=== PATIENT | female | born 1980 ===

== ENCOUNTER 2017-05-10 10:01 | Emergency (ER) | payer OTHER ==
[2017-05-10 10:02] VITALS: BMI 44.2
[2017-05-10 10:07] VITALS: PULSE 84; RESP 20; TEMP 98.4; O2SAT 100
[2017-05-10 10:08] VITALS: BP 103/70
--- NOTE | 2017-05-10 10:10 | C.PDOC ---
History Of Present Illness 37-year-old female, PMHx includes Hypertension, Anxiety, Asthma and Depression, presents to the emergency department with complaints of generalized abdominal pain. Patient states she has been experiencing generalized abdominal pain, ongoing for the past week. Patient notes associated nausea and subjective fever. Last menstrual period was two weeks ago. Patients last bowel movement was yesterday. Patients secondary complaint is sore throat and eye infection, which she believes is causing her pain. Denies dizziness, chest pain, back pain , shortness of breath, or any other associated symptoms. No other complaints at this time. Of note, has been seen in ER previously for drug seeking behavior requesting Xanax for anxiety or other vague complaints. Time Seen by Provider: 05/10/17 10:09 Chief Complaint (Nursing): Abdominal Pain History Per: Patient History/Exam Limitations: no limitations Onset/Duration Of Symptoms: Days Current Symptoms Are (Timing): Still Present Severity: Moderate Location Of Pain/Discomfort: Diffuse Past Medical History Reviewed: Historical Data, Nursing Documentation, Vital Signs Vital Signs: Last Vital Signs Temp 98.4 F 05/10/17 10:04 Pulse 84 05/10/17 10:04 Resp 20 05/10/17 10:04 BP 103/70 05/10/17 10:04 Pulse Ox 100 05/10/17 11:19 - Medical History PMH: Anxiety, Arthritis, Asthma, Depression, HTN (Denies) Family History: States: No Known Family Hx - Social History Hx Tobacco Use: No Hx Alcohol Use: No Hx Substance Use: No - Immunization History Hx Tetanus Toxoid Vaccination: Yes Hx Influenza Vaccination: No Hx Pneumococcal Vaccination: No Review Of Systems Except As Marked, All Systems Reviewed And Found Negative. Constitutional: Negative for: Fever Respiratory: Negative for: Shortness of Breath Gastrointestinal: Negative for: Nausea, Vomiting Musculoskeletal: Negative for: Back Pain Neurological: Negative for: Weakness, Numbness Physical Exam - Physical Exam Appears: Non-toxic, No Acute Distress, Unkempt Skin: Warm, Dry, No Rash Eye(s): bilateral: Normal Inspection, PERRL Nose: Normal Oral Mucosa: Moist Lips: Normal Appearing Neck: Normal ROM Cardiovascular: Rhythm Regular Respiratory: Normal Breath Sounds, No Accessory Muscle Use Gastrointestinal/Abdominal: Soft, No Tenderness, No Guarding, No Rebound Extremity: Normal ROM Neurological/Psych: Oriented x3, Normal Speech ED Course And Treatment O2 Sat by Pulse Oximetry: 100 Progress - Re-Evaluation Re-evaluation Note: 05/10/17 11:15 ADVISED BY RN KADEEM DANIELSON. PT GONE PRIOR TO MY REEVAL - Data Reviewed Data Reviewed: Lab, Old records Disposition - Disposition Disposition: ELOPEMENT - ER ONLY Disposition Time: 11:15 Condition: UNKNOWN Forms: [facility] (Belarusian) - Clinical Impression Clinical Impression: Patient left before treatment completed, Abdominal pain - Scribe Statement The provider has reviewed the documentation as recorded by the Scribe (Marielle Villanueva) All medical record entries made by the Scribe were at my direction and personally dictated by me. I have reviewed the chart and agree that the record accurately reflects my personal performance of the history, physical exam, medical decision making, and the department course for this patient. I have also personally directed, reviewed, and agree with the discharge instructions and disposition.
[2017-05-10] MEDS ORDERED: Alum-Mag Hydrox-Simethicone Susp (30 mL) PO STA (10:37)
[2017-05-10 10:38] LABS: RBC URINE 1 /hpf (0-3); URINE BACTERIA RARE (<OCC); URINE BILIRUBIN NEGATIVE (NEGATIVE); URINE BLOOD NEGATIVE (NEGATIVE); URINE COLOR Yellow (YELLOW); URINE GLUCOSE (UA) NORMAL (Normal); URINE KETONE TRACE mg/dL (NEGATIVE); URINE LEUKOCYTE ESTERASE TRACE Leu/uL (Negative); URINE PROTEIN NEGATIVE (NEGATIVE); URINE UROBILINOGEN NORMAL mg/dL (0.2-1.0); WBC URINE 4 /hpf (0-5)
[2017-05-10] MEDS ORDERED: Aluminum Hydroxide/Magnesium Hydroxide Susp (30 mL) ONE (10:48)
== END 2017-05-10 11:13 | disposition left against medical advice (07) ==
LOC: C.ER 10:01
DX: R10.9 Unspecified abdominal pain (principal)

== ENCOUNTER 2017-07-24 09:28 | Emergency (ER) | payer SELFPAY ==
[2017-07-24 09:28] VITALS: BMI 44.2
[2017-07-24 09:41] VITALS: BP 117/81; PULSE 79; RESP 18; TEMP 98.2; O2SAT 98
[2017-07-24] MEDS ORDERED: Naproxen 550 mg Tab PO STA (09:56)
[2017-07-24] MEDS ORDERED: guaiFENesin DM 100 mg-10 mg/5 ml UD PO STA (09:57)
--- NOTE | 2017-07-24 09:59 | C.PDOC ---
History Of Present Illness 37 year old female presents to the ED for evaluation of sore throat, nonproductive cough, chills, and leg pain which began approx 1 week ago. Patient denies ear pain, chest pain, shortness of breath, abdominal pain, nausea /vomiting/diarrhea, dysuria, sick contacts. Time Seen by Provider: 07/24/17 09:44 Chief Complaint (Nursing): ENT Problem History Per: Patient History/Exam Limitations: None Onset/Duration Of Symptoms: Days (1 week ) Current Symptoms Are (Timing): Still Present Quality (Ear): denies: Pain W/Touch Symptoms Have Been: Continuous Severity: Mild Past Medical History Reviewed: Historical Data, Nursing Documentation, Vital Signs Vital Signs: Last Vital Signs Temp 98.2 F 07/24/17 09:37 Pulse 79 07/24/17 09:37 Resp 18 07/24/17 09:37 BP 117/81 07/24/17 09:37 Pulse Ox 98 07/24/17 12:16 - Medical History PMH: Anxiety, Arthritis, Asthma, Depression, HTN (Denies) Surgical History: No Surg Hx Family History: States: No Known Family Hx - Social History Hx Tobacco Use: No Hx Alcohol Use: No Hx Substance Use: No - Immunization History Hx Tetanus Toxoid Vaccination: Yes Hx Influenza Vaccination: No Hx Pneumococcal Vaccination: No Review Of Systems Except As Marked, All Systems Reviewed And Found Negative. Constitutional: Positive for: Chills, Other (body aches/leg pain) ENT: Positive for: Throat Pain. Negative for: Ear Pain Cardiovascular: Negative for: Chest Pain, Palpitations Respiratory: Positive for: Cough. Negative for: Shortness of Breath, Sputum Gastrointestinal: Negative for: Nausea, Vomiting, Abdominal Pain, Diarrhea Genitourinary: Negative for: Dysuria, Hematuria Musculoskeletal: Positive for: Leg Pain Physical Exam - Physical Exam Appears: Well, Non-toxic, No Acute Distress, Other (bizarre affect) Skin: Normal Color, Warm, Dry, No Rash Head: Atraumatic, Normacephalic Eye(s): bilateral: Normal Inspection Ear(s): Bilateral: Normal Nose: Normal, No Discharge Oral Mucosa: Moist Throat: Erythema (mild ), No Exudate, No Drooling, No Other (tonsillar swelling ) Neck: Supple Lymphatic: No Adenopathy (neck ) Chest: Symmetrical, No Deformity, No Tenderness Cardiovascular: Rhythm Regular Respiratory: Normal Breath Sounds, No Rales, No Rhonchi, No Wheezing, Other ( occasional coughing) Gastrointestinal/Abdominal: Normal Exam, Bowel Sounds, Soft, No Tenderness Extremity: Normal ROM, No Tenderness, No Pedal Edema, No Calf Tenderness, No Deformity, No Swelling Extremity: Bilateral: Normal Color And Temperature, Normal ROM Pulses: Left Dorsalis Pedis: Normal, Right Dorsalis Pedis: Normal Neurological/Psych: Oriented x3 Gait: Steady ED Course And Treatment O2 Sat by Pulse Oximetry: 98 (on RA) Pulse Ox Interpretation: Normal Progress Note: Patient given PO Naprosyn and Robitussin DM. She was reassurred symptoms are likely viral, and that treatment is supprortive. Rxs given for Motrin, Tessalon, Chloraseptic spray. Patient also requesting Xanax, however she was instructed to follow up with PMD/clinic in 1-2 days for further evaluation and for that medication. She denies current anxiety/depression/SI/ HI. Patient understands she should return to ED if symptoms worsen. Reevaluation Time: 10:10 Reassessment Condition: Improved Disposition Counseled Patient/Family Regarding: Diagnosis, Need For Followup, Rx Given - Disposition Referrals: [facility] at [facility] [Outside] Disposition: HOME/ ROUTINE Disposition Time: 10:10 Condition: STABLE Additional Instructions: FOLLOW UP WITH YOUR DOCTOR OR IN MEDICAL CLINIC IN 1-2 DAYS USE MEDICATIONS NEEDED DRINK PLENTY OF FLUIDS RETURN TO ER IF SYMPTOMS WORSEN Prescriptions: Benzonatate [Tessalon Perles] 100 mg PO BID PRN #15 sgl PRN Reason: Cough Ibuprofen [Motrin Tab] 600 mg PO Q6 PRN #30 tab PRN Reason: fever/pain Phenol/Glycerin [Chloraseptic [place]] 1 spray MM Q6 PRN #1 spray PRN Reason: THROAT PAIN Instructions: Viral Syndrome (ED) Forms: [facility] (Azeri) Print Language: WOLOF - Clinical Impression Clinical Impression: Viral syndrome, Viral pharyngitis - Scribe Statement The provider has reviewed the documentation as recorded by the Scribe (Astrid Ann) Provider Attestation: All medical record entries made by the Scribe were at my direction and personally dictated by me. I have reviewed the chart and agree that the record accurately reflects my personal performance of the history, physical exam, medical decision making, and the department course for this patient. I have also personally directed, reviewed, and agree with the discharge instructions and disposition.
[2017-07-24] MEDS ORDERED: Naproxen 550 mg Tab PO ONE (10:05)
[2017-07-24] MEDS ORDERED: guaiFENesin DM 100 mg-10 mg/5 ml UD ONE (10:05)
== END 2017-07-24 10:10 | disposition home or self-care (01) ==
LOC: C.ER 09:28
DX: B34.9 Viral infection, unspecified (principal); J02.9 Acute pharyngitis, unspecified

== ENCOUNTER 2017-08-26 07:57 | Emergency (ER) | payer OTHER ==
[2017-08-26 07:57] VITALS: BMI 44.2
[2017-08-26 08:04] VITALS: BP 171/76; PULSE 85; RESP 20; TEMP 98.1; O2SAT 98
--- NOTE | 2017-08-26 08:53 | C.PDOC ---
History Of Present Illness 37 y/o female c/o right wrist pain. pt sts she was seen in ED 2 days ago for same, had velcro splint applied and was not prescribed any analgesic. pt c/o persistent pain with swelling to fingers., no numbness or tingling. Time Seen by Provider: 08/26/17 08:13 Chief Complaint (Nursing): Upper Extremity Problem/Injury History Per: Patient History/Exam Limitations: no limitations Onset/Duration Of Symptoms: Days Current Symptoms Are (Timing): Still Present Quality: "Pain" Past Medical History Reviewed: Historical Data, Nursing Documentation, Vital Signs Vital Signs: Last Vital Signs Temp 98.1 F 08/26/17 08:01 Pulse 85 08/26/17 08:01 Resp 20 08/26/17 08:01 BP 171/76 H 08/26/17 08:01 Pulse Ox 98 08/26/17 16:53 - Medical History PMH: Anxiety, Arthritis, Asthma, Depression, HTN Surgical History: No Surg Hx Family History: States: No Known Family Hx - Social History Hx Tobacco Use: No Hx Alcohol Use: No Hx Substance Use: No - Immunization History Hx Tetanus Toxoid Vaccination: Yes Hx Influenza Vaccination: No Hx Pneumococcal Vaccination: No Review Of Systems Constitutional: Negative for: Fever, Chills Cardiovascular: Negative for: Chest Pain Gastrointestinal: Negative for: Vomiting Musculoskeletal: Positive for: Hand Pain Skin: Negative for: Rash Neurological: Negative for: Weakness, Numbness Physical Exam - Physical Exam Additional Physical Exam Comments: Constitutional: No acute distress. WDWN. Head: Normocephalic. Atraumatic. Eyes: PERRL. EOMI. ENT: Moist mucous membranes. Neck: Supple. Chest: No tenderness. Back: No CVA and no mid-line tenderness. Musculoskeletal: Pain to anterior right mid wrist. Mild swelling to right hand and fingers. Cap refill <2 seconds. Radial pulse 2+ bilaterally Skin: No rash. Neurologic: Alert, no focal deficit. ED Course And Treatment O2 Sat by Pulse Oximetry: 98 (RA) Pulse Ox Interpretation: Normal Medical Decision Making Medical Decision Makin am per RN, pt refused to wait for repeat blood pressure or discharge paperwork, including rx for analgesics, and walked out of ED. 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 - Scribe Statement The provider has reviewed the documentation as recorded by the Scribsameer Nichols All medical record entries made by the Sandraibsameer were at my direction and personally dictated by me. I have reviewed the chart and agree that the record accurately reflects my personal performance of the history, physical exam, medical decision making, and the department course for this patient. I have also personally directed, reviewed, and agree with the discharge instructions and disposition.
== END 2017-08-26 09:11 | disposition left against medical advice (07) ==
LOC: C.ER 07:57
DX: M25.531 Pain in right wrist (principal)
CPT/HCPCS: 96372; 99284; J1885

== ENCOUNTER 2017-09-28 15:59 | Emergency (ER) | payer MEDICARE ==
[2017-09-28 15:59] VITALS: BMI 44.2
[2017-09-28 16:39] VITALS: BP 109/65; PULSE 73; RESP 18; TEMP 98.9; O2SAT 100
--- NOTE | 2017-09-28 18:22 | C.PDOC ---
History Of Present Illness Pt is here requesting a refill for he Ibuprofen. Time Seen by Provider: 09/28/17 17:27 Chief Complaint (Nursing): Med Refill History Per: Patient Onset/Duration Of Symptoms: Days Current Symptoms Are (Timing): Still Present Severity: Moderate Additional History Per: Prior Records Past Medical History Reviewed: Historical Data, Nursing Documentation, Vital Signs Vital Signs: Last Vital Signs Temp 98.9 F 09/28/17 16:36 Pulse 73 09/28/17 16:36 Resp 18 09/28/17 16:36 BP 109/65 09/28/17 16:36 Pulse Ox 100 09/28/17 16:36 - Medical History PMH: Anxiety, Arthritis, Asthma, Depression, HTN Family History: States: Unknown Family Hx - Social History Hx Tobacco Use: No Hx Alcohol Use: No Hx Substance Use: No - Immunization History Hx Tetanus Toxoid Vaccination: Yes Hx Influenza Vaccination: No Hx Pneumococcal Vaccination: No Review Of Systems Except As Marked, All Systems Reviewed And Found Negative. Constitutional: Negative for: Fever, Weakness Cardiovascular: Negative for: Chest Pain Respiratory: Negative for: Shortness of Breath Gastrointestinal: Negative for: Vomiting Genitourinary: Negative for: Dysuria, Vaginal Bleeding Musculoskeletal: Negative for: Neck Pain Skin: Negative for: Rash Neurological: Negative for: Weakness, Numbness Psych: Positive for: Anxiety. Negative for: Suicidal ideation Physical Exam - Physical Exam Appears: Non-toxic, No Acute Distress Skin: Normal Color, Warm, Dry, No Rash Head: Atraumatic, Normacephalic Eye(s): bilateral: PERRL, EOMI Neck: Normal ROM, Supple Cardiovascular: Rhythm Regular Respiratory: Normal Breath Sounds, No Accessory Muscle Use Gastrointestinal/Abdominal: Soft, No Tenderness Back: No CVA Tenderness Extremity: Normal ROM Neurological/Psych: Oriented x3, Normal Motor, Normal Sensation ED Course And Treatment O2 Sat by Pulse Oximetry: 100 Pulse Ox Interpretation: Normal Disposition Counseled Patient/Family Regarding: Diagnosis, Need For Followup, Rx Given - Disposition Referrals: Enzo Valera MD [IM] - Disposition: HOME/ ROUTINE Disposition Time: 18:22 Condition: STABLE Additional Instructions: Follow up with your doctor. Return to the ER if you develop worsening of symptoms or if you have any other concerns. Prescriptions: Ibuprofen [Motrin Tab] 600 mg PO TID PRN #30 tab PRN Reason: Pain, Moderate (4-7) Instructions: Medicine Refill (ED) - Clinical Impression Clinical Impression: Medication refill, Anxiety
== END 2017-09-28 18:32 | disposition home or self-care (01) ==
LOC: C.ER 15:59
DX: Z76.0 Encounter for issue of repeat prescription (principal); F41.9 Anxiety disorder, unspecified

== ENCOUNTER 2017-10-06 12:25 | Emergency (ER) | payer MEDICARE ==
[2017-10-06 13:24] VITALS: BMI 41.6
[2017-10-06 13:27] VITALS: BP 125/85; PULSE 71; RESP 18; TEMP 98.7; O2SAT 100
== END 2017-10-06 15:00 | disposition left against medical advice (07) ==
LOC: C.ER 12:25
DX: Z02.89 Encounter for other administrative examinations (principal); R10.9 Unspecified abdominal pain

== ENCOUNTER 2017-11-10 17:30 | Emergency (ER) | payer MEDICARE ==
[2017-11-10 17:30] VITALS: BMI 41.6
[2017-11-10 18:05] VITALS: BP 89/62; PULSE 68; RESP 20; TEMP 98.8; O2SAT 99
--- NOTE | 2017-11-10 18:46 | C.PDOC ---
History Of Present Illness patient left prior to my evaluation Time Seen by Provider: 11/10/17 18:21 Chief Complaint (Nursing): Chest Pain Past Medical History Vital Signs: Last Vital Signs Temp 98.8 F 11/10/17 18:03 Pulse 68 11/10/17 18:03 Resp 20 11/10/17 18:03 BP 89/62 L 11/10/17 18:03 Pulse Ox 99 11/10/17 18:03 - Medical History PMH: Anxiety, Arthritis, Asthma, Depression, HTN Family History: States: Unknown Family Hx - Social History Hx Tobacco Use: No Hx Alcohol Use: No Hx Substance Use: No - Immunization History Hx Tetanus Toxoid Vaccination: Yes Hx Influenza Vaccination: Yes Hx Pneumococcal Vaccination: Yes ED Course And Treatment O2 Sat by Pulse Oximetry: 99 Disposition - Disposition Disposition: LEFT W/O BEING SEEN - ER ONLY Disposition Time: 19:00 Condition: UNKNOWN - Clinical Impression Clinical Impression: Patient left without being seen
--- NOTE | 2017-11-12 15:54 | CARD ---
APPROVED REPORT EKG Measurement Heart [id number] <Conclusion> Normal sinus rhythm Normal ECG
== END 2017-11-10 18:21 | disposition left against medical advice (07) ==
LOC: C.ER 17:30
DX: Z02.89 Encounter for other administrative examinations (principal); R07.9 Chest pain, unspecified
CPT/HCPCS: 93005; LWBS0

== ENCOUNTER 2018-01-21 09:11 | Emergency (ER) | payer MEDICARE ==
[2018-01-21 09:12] VITALS: BMI 41.6
--- NOTE | 2018-01-21 10:07 | C.PDOC ---
History Of Present Illness 37 yo female w/PMHx of asthma, HTN, come in for evaluation of cold sx for past 2 -3 weeks associated with nasal congestion, runny nose, dry cough. Pt sts, for past week also developed epigastric pain " stomach infection". Otherwise, pt denies high fever, chills, headache, dizziness, malaise, change in appetite, food intolerance, drooling, dysphagia, dyspnea, SOB, wheezing, V/D, hematemesis , diarrhea, back pain, UTi sx. Ambulate to Ed for evaluation, not in any apparent distress. Time Seen by Provider: 01/21/18 10:06 Chief Complaint (Nursing): Abdominal Pain History Per: Patient Past Medical History Reviewed: Historical Data, Nursing Documentation, Vital Signs Vital Signs: Last Vital Signs Temp 98.8 F 01/21/18 11:27 Pulse 82 01/21/18 11:27 Resp 16 01/21/18 11:27 BP 119/82 01/21/18 11:27 Pulse Ox 98 01/21/18 11:27 - Medical History PMH: Anxiety, Arthritis, Asthma, Depression, HTN Family History: States: Unknown Family Hx - Social History Hx Tobacco Use: No Hx Alcohol Use: No Hx Substance Use: No - Immunization History Hx Tetanus Toxoid Vaccination: Yes Hx Influenza Vaccination: Yes Hx Pneumococcal Vaccination: Yes Review Of Systems Except As Marked, All Systems Reviewed And Found Negative. Constitutional: Negative for: Fever, Chills ENT: Positive for: Nose Discharge, Nose Congestion, Throat Pain, Throat Swelling. Negative for: Ear Pain, Ear Discharge Cardiovascular: Negative for: Chest Pain, Palpitations Respiratory: Positive for: Cough. Negative for: Shortness of Breath, Wheezing Gastrointestinal: Positive for: Abdominal Pain. Negative for: Nausea, Vomiting , Diarrhea, Melena, Hematochezia, Hematemesis Genitourinary: Negative for: Dysuria, Frequency, Incontinence Musculoskeletal: Negative for: Neck Pain, Back Pain Skin: Negative for: Rash Neurological: Negative for: Altered Mental Status, Headache, Dizziness Physical Exam - Physical Exam Appears: Well, Non-toxic, No Acute Distress Skin: Normal Color, Warm, Dry, No Rash Head: Normacephalic Eye(s): bilateral: PERRL Nose: Normal Tongue: Normal Appearing Lips: Normal Appearing Throat: Erythema (B/L), Exudate (scattered B/L), No Drooling, Other (uvula midline, no edema.) Neck: Trachea Midline, Supple Cardiovascular: Rhythm Regular, No Murmur, No JVD Respiratory: No Decreased Breath Sounds, No Accessory Muscle Use, No Stridor, No Wheezing Gastrointestinal/Abdominal: Soft, Tenderness (mild epigastric ), No Distention, No Guarding Back: No CVA Tenderness Extremity: Normal ROM, No Deformity, No Swelling Neurological/Psych: Oriented x3, Normal Speech ED Course And Treatment O2 Sat by Pulse Oximetry: 99 Pulse Ox Interpretation: Normal - Radiology CXR: Interpreted by Me, Viewed By Me CXR Interpretation: Yes: No Acute Disease Progress Note: On re-evaluation, pt is afebrile, hemodynamiclay stable. Non- toxic, not in any apaprent distress, tolerate Po well in ED. PulsEOx 99%RA . ENT : exam c/w acute pharyngitis. Uvual midline, no edema. neck: Supple, (-) JVD. Lungs: CTA B/L, BS equal B/L. Abd: benign, (-) guarding, (-) rebound. back: (- ) CVA tenderness. neurologicaly intact. CXR review- normal study. Pt has clinical findings c/w acte pharungitis, bronchitis. Hx of asthma. Pt advised. ref. to F/u with PMD in 2-3 days for re-eavl. return to Ed if any worsening or new changes. Disposition Counseled Patient/Family Regarding: Studies Performed, Diagnosis, Need For Followup, Rx Given - Disposition Referrals: [facility] at [facility] [Outside] Disposition: HOME/ ROUTINE Disposition Time: 10:56 Condition: STABLE Additional Instructions: Encourage fluids Diet restriction for 1-2 week take medication as prescribed Follow up with PMD in 2-3 days for re-evaluation. return if any worsening or new changes. Prescriptions: Albuterol HFA [Ventolin HFA 90 mcg/actuation (8 g)] 1 puff IH Q6 #1 inhaler Azithromycin [Zithromax] 250 mg PO DAILY #4 tab Famotidine [Pepcid] 20 mg PO BID #20 tab Loratadine [Claritin] 10 mg PO DAILY #20 tab Prednisone [Deltasone] 40 mg PO DAILY #6 tablet Instructions: Asthma in Adults, Sore Throat, Adult (DC) Forms: [facility] (Maltese) - Clinical Impression Clinical Impression: Pharyngitis, Asthma, Epigastric abdominal pain
[2018-01-21 10:25] LABS: HCG,QUALITATIVE URINE NEGATIVE (NEGATIVE)
[2018-01-21 10:28] LABS: SQUAMOUS EPITHIAL 9 /hpf (0-5); URINE BACTERIA RARE (<OCC); URINE BILIRUBIN NEGATIVE (NEGATIVE); URINE BLOOD NEGATIVE (NEGATIVE); URINE CLARITY Hazy (Clear); URINE COLOR Yellow (YELLOW); URINE GLUCOSE (UA) NORMAL (Normal); URINE LEUKOCYTE ESTERASE TRACE Leu/uL (Negative); URINE PROTEIN NEGATIVE (NEGATIVE)
[2018-01-21] MEDS ORDERED: Albuterol-Ipratrop 3 mg / 0.5 (3 ml) UD IH STA (10:47)
[2018-01-21] MEDS ORDERED: Alum-Mag Hydrox-Simethicone Susp (30 mL) PO STA (10:47)
[2018-01-21] MEDS ORDERED: Albuterol-Ipratrop 3 mg / 0.5 (3 ml) UD ONE (10:53)
[2018-01-21] MEDS ORDERED: Aluminum Hydroxide/Magnesium Hydroxide Susp (30 mL) ONE (10:54)
[2018-01-21 11:28] VITALS: BP 119/82; PULSE 82; RESP 16; TEMP 98.8
--- NOTE | 2018-01-21 13:05 | RAD ---
Chest x-ray two views History: Cough. Comparison: None available. Findings: Mild venous congestion. Heart size within normal limits. Degenerative changes in the spine. Impression: Mild venous congestion.
[2018-01-21 18:25] VITALS: O2SAT 99
== END 2018-01-21 12:01 | disposition home or self-care (01) ==
LOC: C.ER 09:11
DX: J45.909 Unspecified asthma, uncomplicated (principal); R10.13 Epigastric pain; J02.9 Acute pharyngitis, unspecified; I10 Essential (primary) hypertension

== ENCOUNTER 2018-03-08 17:01 | Emergency (ER) | payer MEDICARE ==
[2018-03-08 17:01] VITALS: BMI 41.6
--- NOTE | 2018-03-08 19:07 | C.PDOC ---
History Of Present Illness 37 y/o female presents to ED with c/o vague abdominal discomfort for 3 months. Patient reports weight gain secondary to lack of unknown medication refill. Patient denies nausea, vomiting, back pain, dysuria or any other complaints at this time. Time Seen by Provider: 03/08/18 18:33 Chief Complaint (Nursing): Abdominal Pain History Per: Patient History/Exam Limitations: no limitations Onset/Duration Of Symptoms: Days Current Symptoms Are (Timing): Still Present Location Of Pain/Discomfort: Diffuse Past Medical History Reviewed: Historical Data, Nursing Documentation, Vital Signs Vital Signs: Last Vital Signs Temp 98 F 03/08/18 17:15 Pulse 78 03/08/18 17:15 Resp 16 03/08/18 17:15 BP 101/70 03/08/18 17:15 Pulse Ox 99 03/08/18 19:07 - Medical History PMH: Anxiety, Arthritis, Asthma, Depression, HTN Surgical History: No Surg Hx Family History: States: No Known Family Hx - Social History Hx Tobacco Use: No Hx Alcohol Use: No Hx Substance Use: No - Immunization History Hx Tetanus Toxoid Vaccination: Yes Hx Influenza Vaccination: Yes Hx Pneumococcal Vaccination: Yes Review Of Systems Constitutional: Negative for: Fever, Chills Gastrointestinal: Positive for: Abdominal Pain. Negative for: Nausea, Vomiting Genitourinary: Negative for: Dysuria, Hematuria Skin: Negative for: Rash Physical Exam - Physical Exam Appears: Non-toxic, Other (Argumentative, obese) Skin: Warm, Dry, No Rash Head: Atraumatic, Normacephalic Eye(s): bilateral: Normal Inspection Oral Mucosa: Moist Neck: Normal ROM, Supple Cardiovascular: Rhythm Regular Respiratory: Normal Breath Sounds, No Rales, No Rhonchi, No Wheezing Gastrointestinal/Abdominal: Soft, No Tenderness, No Guarding, No Rebound, Other (dull to percussion on epigastric area) Back: No CVA Tenderness, No Paraspinal Tenderness Extremity: Normal ROM, Capillary Refill (<2 seconds) Neurological/Psych: Oriented x3, Normal Speech, Normal Cognition ED Course And Treatment - Laboratory Results Lab Interpretation: Normal (ua neg.) Urine POC: Negative O2 Sat by Pulse Oximetry: 99 (RA) Pulse Ox Interpretation: Normal Progress Note: argumentative with MD and staff, refused to provide urine sample initially. sleeping through ED eval. LOW susp of pain issues. suspect constipation (dull to percussion throughout) and magnified by pt's underlying psych/anxiety issues. diet changes and laxative use educated. Reevaluation Time: 19:51 Reassessment Condition: Improved (remains asymptomatic.) Medical Decision Making Medical Decision Making: significant weight gain, underlying psych/anxiety, prob constipation, no sig pain issues today. Disposition Doctor Will See Patient In The: Office Counseled Patient/Family Regarding: Studies Performed, Diagnosis - Disposition Disposition: HOME/ ROUTINE Disposition Time: 19:51 Condition: GOOD Forms: [facility] (Kiswahili) - Clinical Impression Clinical Impression: Generalized colicky abdominal pain - Scribe Statement The provider has reviewed the documentation as recorded by the Scribe Jony Nichols All medical record entries made by the Sandraibsameer were at my direction and personally dictated by me. I have reviewed the chart and agree that the record accurately reflects my personal performance of the history, physical exam, medical decision making, and the department course for this patient. I have also personally directed, reviewed, and agree with the discharge instructions and disposition.
[2018-03-08 19:23] LABS: HCG,QUALITATIVE URINE NEGATIVE (NEGATIVE)
[2018-03-08 19:31] LABS: SQUAMOUS EPITHIAL 3 /hpf (0-5); URINE BACTERIA FEW (<OCC); URINE BILIRUBIN NEGATIVE (NEGATIVE); URINE BLOOD NEGATIVE (NEGATIVE); URINE CLARITY Hazy (Clear); URINE COLOR YELLOW (YELLOW); URINE GLUCOSE (UA) NORMAL (Normal); URINE LEUKOCYTE ESTERASE 1+ Leu/uL (Negative); URINE PROTEIN NEGATIVE (NEGATIVE)
[2018-03-08 20:07] VITALS: BP 120/88; PULSE 63; RESP 18; TEMP 98.3; O2SAT 97
== END 2018-03-08 20:15 | disposition home or self-care (01) ==
LOC: C.ER 17:01
DX: R10.84 Generalized abdominal pain (principal); I10 Essential (primary) hypertension

== ENCOUNTER 2018-03-16 06:25 | Emergency (ER) | payer MEDICARE ==
[2018-03-16 06:36] VITALS: BMI 45.3
[2018-03-16 07:51] LABS: BASO # 0.1 K/uL (0.0-0.2); BASO % 0.9 % (0.0-2.0); EOS # 0.1 K/uL (0.0-0.7); EOS % 1.2 % (0.0-4.0); HEMOGLOBIN 13.2 g/dL (11.0-16.0); LYMPH # 2.2 K/uL (1.0-4.3); LYMPH % 33.7 % (20.0-40.0); MEAN CELL VOLUME 96.6 fL (81.0-99.0); MEAN CORPUSCULAR HEMOGLOBIN 33.8 pg (27.0-31.0); MEAN PLATELET VOLUME 7.4 fL (7.2-11.7); MONO # 0.5 K/uL (0.0-0.8); MONO % 7.4 % (0.0-10.0); NEUT # 3.7 K/uL (1.8-7.0); NEUT % 56.8 % (50.0-75.0); RBC 3.91 Mil/uL (3.80-5.20); RED CELL DISTRIBUTION WIDTH 12.6 % (11.5-14.5); WHITE BLOOD COUNT 6.5 K/uL (4.8-10.8)
[2018-03-16 07:51] LABS: SQUAMOUS EPITHIAL 1 /hpf (0-5); URINE BILIRUBIN NEGATIVE (NEGATIVE); URINE BLOOD 2+ (NEGATIVE); URINE CLARITY Clear (Clear); URINE COLOR Yellow (YELLOW); URINE GLUCOSE (UA) NORMAL (Normal); URINE LEUKOCYTE ESTERASE NEG Leu/uL (Negative); URINE PROTEIN NEGATIVE (NEGATIVE); URINE UROBILINOGEN NORMAL mg/dL (0.2-1.0)
--- NOTE | 2018-03-16 08:04 | C.PDOC ---
History Of Present Illness 37-year-old female, presents to the emergency department with complaints of one- week duration of epigastric abdominal pain, that is associated with nausea, non- bloody/non-bilious vomiting and watery/non-bloody diarrhea. Patient notes pain has worsened over the past two days, prompting visit. Contrary to triage, patient does not complain of any chest pain or shortness of breath. Chief Complaint (Nursing): Shortness Of Breath History Per: Patient History/Exam Limitations: no limitations Onset/Duration Of Symptoms: Days Current Symptoms Are (Timing): Still Present Quality: Sharp Past Medical History Reviewed: Historical Data, Nursing Documentation, Vital Signs Vital Signs: Last Vital Signs Temp 98.5 F 03/16/18 06:33 Pulse 78 03/16/18 06:33 Resp 20 03/16/18 07:21 BP 119/71 03/16/18 06:33 Pulse Ox 99 03/16/18 07:21 - Medical History PMH: Anxiety, Arthritis, Asthma, Depression, HTN Family History: States: No Known Family Hx - Social History Hx Tobacco Use: No Hx Alcohol Use: No Hx Substance Use: No - Immunization History Hx Tetanus Toxoid Vaccination: Yes Hx Influenza Vaccination: Yes Hx Pneumococcal Vaccination: Yes ED Course And Treatment - Laboratory Results Result Diagrams: 03/16/18 07:39 O2 Sat by Pulse Oximetry: 99 Disposition - Disposition Forms: [facility] (Salvadorean) - Scribe Statement The provider has reviewed the documentation as recorded by the Scribe (Marielle Villanueva) All medical record entries made by the Scribe were at my direction and personally dictated by me. I have reviewed the chart and agree that the record accurately reflects my personal performance of the history, physical exam, medical decision making, and the department course for this patient. I have also personally directed, reviewed, and agree with the discharge instructions and disposition.
[2018-03-16 08:07] LABS: ALB/GLOB RATIO 1.5 (1.0-2.1); ALT/SGPT 25 U/L (9-52); AST/SGOT 35 U/L (14-36); BLOOD UREA NITROGEN 19 mg/dL (7-17); CALCIUM 8.6 mg/dl (8.6-10.4); GFR AFRICAN-AMERICAN > 60; GFR NON-AFRICAN AMERICAN > 60; LIPASE 73 U/L (23-300)
--- NOTE | 2018-03-16 08:11 | C.PDOC ---
History Of Present Illness 37-year-old female, presents to the emergency department with complaints of one- week duration of epigastric abdominal pain, that is associated with nausea, non- bloody/non-bilious vomiting and watery/non-bloody diarrhea. Patient notes pain has worsened over the past two days, prompting visit. Contrary to triage, patient does not complain of any chest pain or shortness of breath. Chief Complaint (Nursing): Shortness Of Breath History Per: Patient History/Exam Limitations: no limitations Onset/Duration Of Symptoms: Days Current Symptoms Are (Timing): Still Present Severity: Moderate Location Of Pain/Discomfort: Epigastric Quality Of Discomfort: Sharp Associated Symptoms: Nausea, Vomiting, Diarrhea Past Medical History Reviewed: Historical Data, Nursing Documentation, Vital Signs Vital Signs: Last Vital Signs Temp 99.0 F 03/16/18 09:41 Pulse 69 03/16/18 09:41 Resp 16 03/16/18 09:41 BP 107/64 03/16/18 09:41 Pulse Ox 100 03/16/18 09:41 - Medical History PMH: Anxiety, Arthritis, Asthma, Depression, HTN Family History: States: No Known Family Hx - Social History Hx Tobacco Use: No Hx Alcohol Use: No Hx Substance Use: No - Immunization History Hx Tetanus Toxoid Vaccination: Yes Hx Influenza Vaccination: Yes Hx Pneumococcal Vaccination: Yes Review Of Systems Constitutional: Negative for: Fever, Chills Cardiovascular: Negative for: Chest Pain, Palpitations Respiratory: Negative for: Shortness of Breath Gastrointestinal: Positive for: Nausea, Vomiting, Abdominal Pain, Diarrhea Genitourinary: Negative for: Dysuria Musculoskeletal: Negative for: Back Pain Skin: Negative for: Rash Neurological: Negative for: Weakness, Headache, Dizziness Physical Exam - Physical Exam Appears: Non-toxic, No Acute Distress Skin: Normal Color, Warm, Dry, No Rash Head: Atraumatic, Normacephalic Eye(s): bilateral: Normal Inspection, PERRL, EOMI Nose: Normal Oral Mucosa: Moist Lips: Normal Appearing Neck: Normal ROM Cardiovascular: Rhythm Regular, No Murmur Respiratory: Normal Breath Sounds, No Accessory Muscle Use Gastrointestinal/Abdominal: Bowel Sounds, Soft, Tenderness (Epigastric), No Guarding, No Rebound Extremity: Normal ROM, No Deformity, No Swelling Neurological/Psych: Oriented x3, Normal Speech ED Course And Treatment - Laboratory Results Result Diagrams: 03/16/18 07:39 03/16/18 07:39 ECG: Interpreted By Me, Viewed By Me ECG Rhythm: Sinus Rhythm ECG Interpretation: No Acute Changes Rate From EC O2 Sat by Pulse Oximetry: 99 (RA) Pulse Ox Interpretation: Normal Medical Decision Making Medical Decision Making: Impression abdominal pain Prior Visits Notes and records from previous visits were reviewed. Patient was evaluated in ED for same complaint on 01/21/18 and 03/08/18. Plan: * EKG * Bloodwork * XR Obstructive series * Pepcid, Toradol, Zofran * Urine Culture * UA * Reassess and Disposition Reassess: constipation cocaine use patient discharged home. She is resting comfortably, no pain on reexamine. Will discharge to follow up with pmd in 2 days. Disposition Counseled Patient/Family Regarding: Studies Performed, Diagnosis - Disposition Referrals: [facility] [Outside] Disposition: HOME/ ROUTINE Disposition Time: 09:57 Condition: STABLE Additional Instructions: follow up with your doctor or medical clinic in 2 days call to make an appointment take medication as prescribed return to ER if symptoms worsens or progress Prescriptions: Polyethylene Glycol 3350 [Miralax] 17 gm PO DAILY PRN #10 packet PRN Reason: Constipation Instructions: Constipation in Adults, Cocaine Use Disorder Forms: [facility] (Polish), General Discharge Instructions - Clinical Impression Clinical Impression: Cocaine abuse, Constipation - Scribe Statement The provider has reviewed the documentation as recorded by the Scribe (Marielle Villanueva) All medical record entries made by the Scribe were at my direction and personally dictated by me. I have reviewed the chart and agree that the record accurately reflects my personal performance of the history, physical exam, medical decision making, and the department course for this patient. I have also personally directed, reviewed, and agree with the discharge instructions and disposition.
[2018-03-16 08:16] LABS: B-TYPE NATRIURETIC PEPTIDE 64.1 pg/mL (0-450)
--- NOTE | 2018-03-16 08:53 | RAD ---
Date of service: 03/16/2018 PROCEDURE: Radiographs of the chest and abdomen (obstructive series) HISTORY: abd pain COMPARISON: No prior. TECHNIQUE: AP radiograph of the chest, with upright and supine radiographs of the abdomen. FINDINGS: CHEST: Lungs: Clear. Cardiovascular: Normal size heart. No pulmonary vascular congestion. Pleura: No pleural fluid. No pneumothorax. Other findings: None. ABDOMEN AND PELVIS: Bowel: Right colonic moderate stool retention. Colonic redundancy. No evidence of mechanical obstruction. Free air: None. Bones: Thoraco lumbar spondylosis. Bilateral hip arthrosis Other findings: None. IMPRESSION: No pulmonary infiltrate Right colonic moderate stool retention. Colonic redundancy. No evidence of mechanical obstruction.
[2018-03-16 09:13] LABS: BARBITURATES, UR NEGATIVE (NEGATIVE); BENZODIAZEPINES, UR NEGATIVE (NEGATIVE); OPIATES, UR NEGATIVE (NEGATIVE); PHENCYCLIDINE, UR NEGATIVE (NEGATIVE)
[2018-03-16 09:42] VITALS: BP 107/64; PULSE 69; RESP 16; TEMP 99
[2018-03-16 09:59] VITALS: O2SAT 99
--- NOTE | 2018-03-18 12:41 | CARD ---
APPROVED REPORT Date of service: 03/16/2018 EKG Measurement Heart [id number] <Conclusion> Normal sinus rhythm Normal ECG
== END 2018-03-16 11:02 | disposition home or self-care (01) ==
LOC: C.ER 06:25
DX: F14.10 Cocaine abuse, uncomplicated (principal); K59.00 Constipation, unspecified; I10 Essential (primary) hypertension; F41.9 Anxiety disorder, unspecified; F17.210 Nicotine dependence, cigarettes, uncomplicated
CPT/HCPCS: 74022; 80053; 81001; 83690; 83880; 84484; 85025; 87086; 93005; 96374; 96375; 99285; G0480; J1885; J2405

== ENCOUNTER 2018-04-12 09:57 | Emergency (ER) | payer MEDICARE ==
[2018-04-12 09:57] VITALS: BMI 45.3
[2018-04-12 10:04] VITALS: BP 134/90; PULSE 88; RESP 18; TEMP 98.9; O2SAT 98
[2018-04-12] MEDS ORDERED: Ofloxacin 0.3% Ophth Soln OS STA (10:34)
--- NOTE | 2018-04-12 10:38 | C.PDOC ---
History Of Present Illness 38 y/o female presents to ED with c/o left eye redness and pain. Patient is intoxicated, aggressive and uncooperative, wears colored contacts and states she took left one out when symptoms developed but refuses to take right eye contact lens. Patient also c/o rash to groin area but is refusing to disrobe to be examined. No other complaints at this time. Time Seen by Provider: 04/12/18 10:28 Chief Complaint (Nursing): Eye Problem History Per: Patient History/Exam Limitations: no limitations Onset/Duration Of Symptoms: Days Current Symptoms Are (Timing): Still Present Past Medical History Reviewed: Historical Data, Nursing Documentation, Vital Signs Vital Signs: Last Vital Signs Temp 98.9 F 04/12/18 10:02 Pulse 88 04/12/18 10:02 Resp 18 04/12/18 10:45 BP 134/90 04/12/18 10:02 Pulse Ox 98 04/12/18 12:09 - Medical History PMH: Anxiety, Arthritis, Asthma, Depression, HTN Surgical History: No Surg Hx Family History: States: No Known Family Hx - Social History Hx Tobacco Use: No Hx Alcohol Use: No Hx Substance Use: No - Immunization History Hx Tetanus Toxoid Vaccination: Yes Hx Influenza Vaccination: Yes Hx Pneumococcal Vaccination: Yes Review Of Systems Constitutional: Negative for: Fever, Chills Eyes: Positive for: Pain, Redness. Negative for: Vision Change Gastrointestinal: Negative for: Nausea, Vomiting Skin: Negative for: Rash Physical Exam - Physical Exam Appears: Other (disheveled, malodorous) Skin: Warm, Dry, No Rash Head: Atraumatic, Normacephalic Eye(s): bilateral: PERRL, EOMI, Other (redness and tearing to left eye. Mild conjunctiva injection to right eye) Ear(s): Bilateral: Normal Oral Mucosa: Moist Additional Physical Exam Comments: Physical exam unable to be finished secondary to patient refusing to cooperate ED Course And Treatment O2 Sat by Pulse Oximetry: 98 (RA) Pulse Ox Interpretation: Normal Medical Decision Making Medical Decision Making: Patient discharged with Antibiotics. Disposition Counseled Patient/Family Regarding: Diagnosis, Need For Followup, Rx Given - Disposition Disposition: HOME/ ROUTINE Disposition Time: 10:38 Condition: STABLE Prescriptions: Bacitracin [Bacitracin Opht OINT] 3.5 applic OD TID #1 tube Forms: [facility] (Turkish), General Discharge Instructions - POA Present On Arrival: None - Clinical Impression Clinical Impression: Eye infection - Scribe Statement The provider has reviewed the documentation as recorded by the Scribe Jony Nichols All medical record entries made by the Scribe were at my direction and personally dictated by me. I have reviewed the chart and agree that the record accurately reflects my personal performance of the history, physical exam, medical decision making, and the department course for this patient. I have also personally directed, reviewed, and agree with the discharge instructions and disposition.
== END 2018-04-12 10:46 | disposition home or self-care (01) ==
LOC: C.ER 09:57
DX: H44.002 Unspecified purulent endophthalmitis, left eye (principal)

== ENCOUNTER 2018-04-20 12:09 | Emergency (ER) | payer MEDICARE ==
[2018-04-20 12:09] VITALS: BMI 45.3
[2018-04-20 12:25] VITALS: RESP 16; TEMP 98.3
--- NOTE | 2018-04-20 12:27 | C.PDOC ---
History Of Present Illness 38 y/o female presents to the ED for evaluation of right ankle injury, sustained today. Patient states she was walking, accidentally stepped in a pothole, and twisted the ankle. She is now complaining of pain to the right ankle. Otherwise denies any numbness, tingling, or focal weakness. Time Seen by Provider: 04/20/18 12:26 Chief Complaint (Nursing): Lower Extremity Problem/Injury History Per: Patient History/Exam Limitations: no limitations Onset/Duration Of Symptoms: Hrs Current Symptoms Are (Timing): Still Present Past Medical History Reviewed: Historical Data, Nursing Documentation, Vital Signs Vital Signs: Last Vital Signs Temp 98.3 F 04/20/18 12:21 Pulse 78 04/20/18 13:59 Resp 16 04/20/18 13:59 BP 118/73 04/20/18 13:59 Pulse Ox 96 04/20/18 13:59 - Medical History PMH: Anxiety, Arthritis, Asthma, Depression Denies: HTN (DENIED 04/20/18) Family History: States: No Known Family Hx - Social History Hx Tobacco Use: No Hx Alcohol Use: No Hx Substance Use: No - Immunization History Hx Tetanus Toxoid Vaccination: Yes Hx Influenza Vaccination: Yes Hx Pneumococcal Vaccination: Yes Review Of Systems Except As Marked, All Systems Reviewed And Found Negative. Musculoskeletal: Positive for: Foot Pain (right ankle) Skin: Negative for: Lesions, Bruising Neurological: Negative for: Weakness, Numbness, Incoordination Physical Exam - Physical Exam Appears: Non-toxic, No Acute Distress Skin: Normal Color, Warm, Dry Head: Atraumatic, Normacephalic Eye(s): bilateral: Normal Inspection Neck: Normal ROM Extremity: Tenderness (to the lateral malleolus, right ankle), Capillary Refill (less than 2sec), No Deformity, Swelling (mild swelling to right lateral malleolus), Other (Decreased ROM secondary to pain) Pulses: Left Dorsalis Pedis: Normal, Right Dorsalis Pedis: Normal Neurological/Psych: Oriented x3, Normal Speech, Normal Motor, Normal Sensation ED Course And Treatment O2 Sat by Pulse Oximetry: 91 (on room air) Pulse Ox Interpretation: Normal - Other Rad X-ray right ankle X-Ray: Interpreted by Me, Viewed By Me Interpretation: (+) non-displaced spiral fracture noted to distal right fibula Progress Note: Ice pack applied and patient treated with Tylenol PO for pain control. Of note, she is verbally abuse to staff and not fully cooperative with examination or procedures. X-rays of right ankle and foot were taken. X-ray shows spiral fracture, non-displaced, of the distal fibula. Patient continues to complain of pain, and was given 1 tab of Percocet PO. Splinted with posterior and U- splint by CP, and checked by me. Patient is stable for discharge home. Patient is extremely uncooperative with positioning and holding foot straight. Ordered physical therapy crutch instruction. 1:45pm -- PT came to evaluate and instruct patient, and is requesting that patient be provided with wheelchair for home. nurse healthcare manager called. Disposition Counseled Patient/Family Regarding: Studies Performed, Diagnosis, Need For Followup, Rx Given - Disposition Referrals: Al Wolfe MD [Staff Provider] - Disposition: HOME/ ROUTINE Disposition Time: 13:16 Condition: STABLE Additional Instructions: Follow up with Orthopedist within 1-2 days. Return to ED if feel worse. Prescriptions: traMADol [Ultram] 50 mg PO Q6 #20 tab Instructions: Ankle Fracture (DC) Forms: [employer] [facility] (French) - Clinical Impression Clinical Impression: Fibula fracture - PA / ACID CHANGER / Resident Statement MD/DO has reviewed & agrees with the documentation as recorded. - Scribe Statement The provider has reviewed the documentation as recorded by the Scribe (Melanie Sánchez) All medical record entries made by the Scribe were at my direction and personally dictated by me. I have reviewed the chart and agree that the record accurately reflects my personal performance of the history, physical exam, medical decision making, and the department course for this patient. I have also personally directed, reviewed, and agree with the discharge instructions and disposition.
[2018-04-20] MEDS ORDERED: Oxycodone/Acetaminophen 5/325 mg Tab PO STA (13:19)
[2018-04-20] MEDS ORDERED: Oxycodone/Acetaminophen 5/325 mg Tab ONE (13:22)
[2018-04-20 13:59] VITALS: BP 118/73; PULSE 78
--- NOTE | 2018-04-20 14:17 | RAD ---
Date of service: 04/20/2018 PROCEDURE: Right Ankle Radiographs. HISTORY: twisted COMPARISON: None FINDINGS: BONES: Oblique distal fibular fracture. Old corticated osseous excrescence posterior malleolar region. Fracture however is not excluded. Plantar and Achilles tendon insertion spurs. JOINTS: Normal. No osteoarthritis. Ankle mortise maintained. Talar dome intact SOFT TISSUES: Soft tissue swelling attests to the acuity of the fracture. OTHER FINDINGS: None. IMPRESSION: Acute Oblique fracture distal right fibula. Possible fracture posterior malleolar region.
--- NOTE | 2018-04-20 14:23 | RAD ---
Date of service: 04/20/2018 PROCEDURE: Right Foot Radiographs. HISTORY: twisted COMPARISON: Same-day right ankle x-ray FINDINGS: BONES: Oblique distal fibular spiral type fracture. Ossifications bordering the posterior malleolus renoted- chronicity are fractures here indeterminate. JOINTS: Midfoot osteoarthrosis. 1st metatarsal-phalangeal joint osteoarthrosis. SOFT TISSUES: Circumferential ankle soft tissue swelling OTHER FINDINGS: Inferior posterior calcaneal spurring. Blending Achilles tendon insertional enthesophyte Os peroneum noted IMPRESSION: Fractures as referenced above. Ankle level Other findings as above.
[2018-04-20 21:29] VITALS: O2SAT 91
== END 2018-04-20 13:59 | disposition home or self-care (01) ==
LOC: C.ER 12:09
DX: S82.831A Other fracture of upper and lower end of right fibula, initial encounter for closed fracture (principal); X50.1XXA Overexertion from prolonged static or awkward postures, initial encounter; Y93.01 Activity, walking, marching and hiking
CPT/HCPCS: 29515; 73610; 73630; 97116; 97161; 99283; G8978; G8979; G8980

== ENCOUNTER 2018-04-27 19:36 | Emergency (ER) | payer MEDICARE ==
[2018-04-27 19:36] VITALS: BMI 45.3
[2018-04-27 20:06] VITALS: BP 111/75; PULSE 78; RESP 20; TEMP 98.9; O2SAT 97
[2018-04-27] MEDS ORDERED: Oxycodone/Acetaminophen 5/325 mg Tab PO STA (20:15)
--- NOTE | 2018-04-27 20:18 | C.PDOC ---
History Of Present Illness 38 year old female presents to ER with complaints of pain to right ankle and requesting pain medications. Patient was seen in ED on 04/20/18 for ankle injury and diagnosis of right distal fibula fracture. Patient does not have splint on, says she removed it because it was bothering her. Patient did not follow up with orthopedic stating she does not have time or money to go. Patient keeps asking for pain medication. Time Seen by Provider: 04/27/18 20:07 Chief Complaint (Nursing): Lower Extremity Problem/Injury History Per: Patient History/Exam Limitations: no limitations Onset/Duration Of Symptoms: Days Current Symptoms Are (Timing): Still Present Past Medical History Reviewed: Historical Data, Nursing Documentation, Vital Signs Vital Signs: Last Vital Signs Temp 98.9 F 04/27/18 20:04 Pulse 78 04/27/18 20:04 Resp 20 04/27/18 20:04 BP 111/75 04/27/18 20:04 Pulse Ox 97 04/28/18 01:07 - Medical History PMH: Anxiety, Arthritis, Asthma, Depression Denies: HTN (DENIED 04/20/18) Surgical History: No Surg Hx Family History: States: No Known Family Hx - Social History Hx Tobacco Use: No Hx Alcohol Use: No Hx Substance Use: No - Immunization History Hx Tetanus Toxoid Vaccination: Yes Hx Influenza Vaccination: Yes Hx Pneumococcal Vaccination: Yes Review Of Systems Except As Marked, All Systems Reviewed And Found Negative. Constitutional: Negative for: Fever, Chills Musculoskeletal: Positive for: Other (right ankle pain) Neurological: Negative for: Weakness, Numbness Physical Exam - Physical Exam Appears: Non-toxic Skin: Warm Head: Normacephalic Eye(s): bilateral: Normal Inspection Neck: Supple Chest: Symmetrical Extremity: Other (Right ankle: moderate swelling and mild ecchymosis to lateral ankle) Pulses: Left Dorsalis Pedis: Normal, Right Dorsalis Pedis: Normal Neurological/Psych: Oriented x3, Normal Speech ED Course And Treatment O2 Sat by Pulse Oximetry: 97 (RA) Pulse Ox Interpretation: Normal Medical Decision Making Medical Decision Making: Impression: Right ankle pain Patient was seen in ED on 04/20/18 for ankle injury and diagnosis of right distal fibula fracture and had splint applied. Note the chart documents patient being uncooperative during evaluation. Today the patient is very concerned with getting pain medication now and script to last her for duration of healing ankle. I ordered percocet for the patient and explain to her orthoglass splint is placed to support the ankle and must not be removed until seen by ortho. Disposition Counseled Patient/Family Regarding: Diagnosis, Need For Followup, Rx Given - Disposition Referrals: Al Wolfe MD [Staff Provider] - Disposition: HOME/ ROUTINE Disposition Time: 20:20 Condition: STABLE Additional Instructions: IT IS IMPORTANT THAT YOU FOLLOW UP WITH ORTHOPEDIC IN FEW DAYS DO NOT REMOVE SPLINT UNTIL YOU SEE ORTHO Prescriptions: Ibuprofen [Motrin] 600 mg PO Q8 #30 tab oxyCODONE/Acetaminophen [Percocet 5/325 mg Tab] 1 tab PO Q8 PRN #15 tab PRN Reason: Pain, Severe (8-10) Instructions: Ankle Fracture (DC) Forms: [employer] [facility] (Yakut) - POA Present On Arrival: None - Clinical Impression Clinical Impression: Ankle fracture, right - PA / ARCHITECT / Resident Statement MD/DO has reviewed & agrees with the documentation as recorded. - Scribe Statement The provider has reviewed the documentation as recorded by the Ermelinda Perez Provider Attestation: All medical record entries made by the Ermelinda were at my direction and personally dictated by me. I have reviewed the chart and agree that the record accurately reflects my personal performance of the history, physical exam, medical decision making, and the department course for this patient. I have also personally directed, reviewed, and agree with the discharge instructions and disposition.
[2018-04-27] MEDS ORDERED: Oxycodone/Acetaminophen 5/325 mg Tab ONE (20:25)
== END 2018-04-27 21:06 | disposition home or self-care (01) ==
LOC: C.ER 19:36
DX: S82.831D Other fracture of upper and lower end of right fibula, subsequent encounter for closed fracture with routine healing (principal); X50.1XXD Overexertion from prolonged static or awkward postures, subsequent encounter

== ENCOUNTER 2018-05-12 14:36 | Emergency (ER) | payer MEDICARE ==
[2018-05-12 14:36] VITALS: BMI 45.3
--- NOTE | 2018-05-12 14:45 | C.PDOC ---
History Of Present Illness CO PERSIST R ANKLE PAIN, REQUESTING ADDL PAIN MED REFILL. SEEN 04/20 AND 04/27 FOR SAME, PREV NOTED TO BE NONCOMPLIANT WITH SPLINT USE DESPITE EXPLICIT INSTRUCTION. PS TOOK OFF SPLINT AND LEFT IT AT HOME, PUT ON DRUG STORE NEOPRENE [place]EN[place] WRAP. DENIES NEW TRAUMA. EXAM NAD EXT RLE ANKLE WRAP IN PLACE. NO GROSS DEFORM. AROM NEURO INTACT MDM NONCOMPLIANCE, UNCOOP W THERAPY PLAN. GIVEN ULTRAM 04/20, PERCOCET AND MOTRIN . PT ADVISED WILL NOT BE RECEIVING ADDL NARCOTIC RX, PT VOICES AGREEMENT W PLAN AND REQUESTS MOTRIN ONLY. PT REFUSING NEW SPLINT APPLICATION. Time Seen by Provider: 05/12/18 14:44 History Per: Patient History/Exam Limitations: no limitations Onset/Duration Of Symptoms: Days Current Symptoms Are (Timing): Still Present Severity: Moderate Past Medical History Reviewed: Historical Data, Nursing Documentation, Vital Signs Vital Signs: Last Vital Signs Temp 99.4 F 05/12/18 14:46 Pulse 77 05/12/18 14:46 Resp 18 05/12/18 14:46 BP 102/68 05/12/18 14:46 Pulse Ox 99 05/12/18 14:46 - Medical History PMH: Anxiety, Arthritis, Asthma, Depression Denies: HTN (DENIED 04/20/18) Other Surgeries: Hx of surgeries Family History: States: No Known Family Hx - Social History Hx Tobacco Use: No Hx Alcohol Use: No Hx Substance Use: No - Immunization History Hx Tetanus Toxoid Vaccination: Yes Hx Influenza Vaccination: Yes Hx Pneumococcal Vaccination: Yes Review Of Systems Except As Marked, All Systems Reviewed And Found Negative. Musculoskeletal: Positive for: Other (right ankle pain) Neurological: Negative for: Weakness, Numbness Physical Exam - Physical Exam Appears: No Acute Distress Skin: Normal Color, Warm, Dry Head: Atraumatic, Normacephalic Eye(s): bilateral: Normal Inspection Respiratory: Other (NARD) Extremity: Normal ROM (RLE: AROM in ankle), No Deformity, Other (RLE: ankle wrap in place) Neurological/Psych: Oriented x3, Normal Speech Medical Decision Making Medical Decision Making: NONCOMPLIANCE, UNCOOP W THERAPY PLAN. GIVEN ULTRAM 04/20, PERCOCET AND MOTRIN . PT ADVISED WILL NOT BE RECEIVING ADDL NARCOTIC RX, PT VOICES AGREEMENT W PLAN AND REQUESTS MOTRIN ONLY. PT REFUSING NEW SPLINT APPLICATION. Disposition Counseled Patient/Family Regarding: Diagnosis, Need For Followup, Rx Given - Disposition Referrals: [facility] [Outside] [facility] [Outside] podiatry,clinic [Other] Disposition: HOME/ ROUTINE Disposition Time: 14:47 Condition: IMPROVED Additional Instructions: YOU HAVE STATED PERSISTENT REFUSAL TO WEAR SPLINT FOR YOUR ANKLE FRACTURE DESPITE REPEATED PREVIOUS INSTRUCTION FOR CONTINUOUS WEAR UNTIL PODIATRY EVALUATION. FOLLOW UP PODIATRY CLINIC. Instructions: Ankle Fracture (DC) Forms: [facility] (Cambodian) - Clinical Impression Clinical Impression: Medication refill, Ankle fracture, right, Noncompliance with treatment plan - Scribe Statement The provider has reviewed the documentation as recorded by the Sandraibsameer Gates Provider Attestation: All medical record entries made by the Scribe were at my direction and personally dictated by me. I have reviewed the chart and agree that the record accurately reflects my personal performance of the history, physical exam, medical decision making, and the department course for this patient. I have also personally directed, reviewed, and agree with the discharge instructions and disposition.
[2018-05-12 14:47] VITALS: BP 102/68; PULSE 77; RESP 18; TEMP 99.4; O2SAT 99
== END 2018-05-12 15:11 | disposition home or self-care (01) ==
LOC: C.ER 14:36
DX: S82.891G Other fracture of right lower leg, subsequent encounter for closed fracture with delayed healing (principal); X58.XXXD Exposure to other specified factors, subsequent encounter; Z91.19 Patient's noncompliance with other medical treatment and regimen; Z76.0 Encounter for issue of repeat prescription

== ENCOUNTER 2018-06-02 06:01 | Emergency (ER) | payer MEDICARE ==
[2018-06-02 06:01] VITALS: BMI 45.3
[2018-06-02 06:12] VITALS: BP 136/84; PULSE 90; RESP 20; TEMP 99.3; O2SAT 98
--- NOTE | 2018-06-02 12:08 | RAD ---
PROCEDURE: Right Ankle Radiographs. HISTORY: h/o fx 5 weeks ago- no cast/splint COMPARISON: Right foot radiograph performed 04/20/28 and right ankle radiograph performed 04/20/18 FINDINGS: BONES: Fracture deformity of the distal fibula re-identified. Posterior malleolar remote fracture versus osseous excrescence identified on prior study is not well assessed on the current examination. Calcaneal enthesophyte and heel spur. Osseous demineralization. No additional fracture evident. JOINTS: No dislocation. Joint space narrowing/degenerative changes. SOFT TISSUES: Marked soft tissue swelling. No evidence of radiopaque foreign body. OTHER FINDINGS: None. IMPRESSION: Re-identified distal fibular fracture deformity and marked soft tissue swelling. Additional findings as above.
--- NOTE | 2018-06-02 13:13 | C.PDOC ---
History Of Present Illness 38-year-old female, PMHx includes Anxiety, Arthritis, Asthma, and Depression, presents to the emergency department with complaints of persistent pain in her right ankle. Patient has a Hx of multiple visits to ED for same complaint. Patient noted to be non-compliant with splint use, despite explicit instructions. She is requesting refill for Motrin. Denies any nausea/vomiting, numbness/weakness, sensory/vascular deficits, new trauma/injury, or any other associated symptoms. No other complaints at this time. Chief Complaint (Nursing): Lower Extremity Problem/Injury History Per: Patient History/Exam Limitations: no limitations Onset/Duration Of Symptoms: Days Current Symptoms Are (Timing): Still Present Severity: Moderate Past Medical History Reviewed: Historical Data, Nursing Documentation, Vital Signs Vital Signs: Last Vital Signs Temp 99.3 F 06/02/18 06:10 Pulse 90 06/02/18 06:10 Resp 20 06/02/18 06:10 BP 136/84 06/02/18 06:10 Pulse Ox 98 06/02/18 06:10 - Medical History PMH: Anxiety, Arthritis, Asthma, Depression, Fractures (right ankle) Denies: HTN (DENIED 04/20/18) Family History: States: No Known Family Hx - Social History Hx Tobacco Use: No Hx Alcohol Use: No Hx Substance Use: No - Immunization History Hx Tetanus Toxoid Vaccination: Yes Hx Influenza Vaccination: Yes Hx Pneumococcal Vaccination: Yes Review Of Systems Constitutional: Negative for: Fever Musculoskeletal: Positive for: Foot Pain (R ankle) Neurological: Negative for: Weakness, Numbness Physical Exam - Physical Exam Appears: Non-toxic, No Acute Distress Skin: Warm, Dry, No Rash Head: Atraumatic, Normacephalic Eye(s): bilateral: Normal Inspection Nose: Normal Oral Mucosa: Moist Lips: Normal Appearing Neck: Normal ROM Chest: Symmetrical Respiratory: Other (No apparent respiratory distress) Extremity: Normal ROM, Tenderness (mild, lateral malleolus), No Calf Tenderness, Capillary Refill (<2 seconds), No Deformity, Swelling (Diffuse) Pulses: Left Dorsalis Pedis: Normal, Right Dorsalis Pedis: Normal Neurological/Psych: Oriented x3, Normal Speech ED Course And Treatment O2 Sat by Pulse Oximetry: 98 (RA) Pulse Ox Interpretation: Normal - Other Rad XR R ANKLE X-Ray: Interpreted by Me, Viewed By Me Interpretation: Accession No. : [id number]. Patient Name / ID : WALKER SILVERMAN / [id number]. Exam Date : 06/02/2018 07:21:11 ( Approved ). Study Comment : Sex / Age : F / 38Y. Creator : Rita De La Torre MD. Dictator : Rita De La Torre MD. Figure Clerk : Synthetic Department Supervisor : Rita De La Torre MD. Approver2 : Report Date : 06/02/2018 12:06:37. My Comment : . PROCEDURE: Right Ankle Radiographs. HISTORY: h/o fx 5 weeks ago- no cast/splint. COMPARISON: Right foot radiograph performed 04/20/28 and right ankle radiograph performed 04/20/18. FINDINGS: BONES: Fracture deformity of the distal fibula re-identified. Posterior malleolar remote fracture versus osseous excrescence identified on prior study is not well assessed on the current examination. Calcaneal enthesophyte and heel spur. Osseous demineralization. No additional fracture evident. JOINTS: No dislocation. Joint space narrowing/degenerative changes. SOFT TISSUES: Marked soft tissue swelling. No evidence of radiopaque foreign body. OTHER FINDINGS: None. IMPRESSION: Re-identified distal fibular fracture deformity and marked soft tissue swelling. Additional findings as above. Medical Decision Making Medical Decision Making: Impression Chronic pain exacerbation, med refill Prior Visits. Notes and records from previous visits were reviewed. Patient evaluated in ED on 04/20, 04/27 and 05/12 for same complaint. Pt refused splint application. Pt was given Ultram on 04/20 and Percocet and Motrin on 04/27. Plan: * Motrin 600mg * XR R Ankle * Reassess and Disposition 07:30 Podiatry was paged. 08:00 Pt refusing to see podiatry, states she would like to be discharged. She is refusing splint application, and requests her Motrin refill. Disposition - Disposition [facility]errals: [facility] [Outside] [facility] [Outside] Podiatry Clinic [Outside] Non [facility] Provider, [Primary Care Provider] - Disposition: HOME/ ROUTINE Disposition Time: 09:00 Condition: FAIR Additional Instructions: HERRERA CARDOSO, thank you for letting us take care of you today. The emergency medical care you received today was directed at your acute symptoms. If you were prescribed any medication, please fill it and take as directed. It may take several days for your symptoms to resolve. Return to the Emergency Department if your symptoms worsen, do not improve, or if you have any other problems. Please contact your doctor or call one of the physicians/clinics you have been referred to that are listed on the Patient Visit Information form that is included in your discharge packet. Bring any paperwork you were given at discharge with you along with any medications you are taking to your follow up visit. Our treatment cannot replace ongoing medical care by a primary care provider outside of the emergency department. Thank you for allowing the [facility] [employer] team to be part of your care today. You did not want to have your ankle fracture splinted here in the emergency room. I highly recommend that you follow up with the podiatry clinic here in 1-2 days for re-evaluation and further management. Prescriptions: Ibuprofen [Motrin] 600 mg PO Q6 PRN #20 tab PRN Reason: Pain, Moderate (4-7) Instructions: Ankle Fracture (DC) Forms: [employer] (Bulgarian) - Clinical Impression Clinical Impression: Ankle fracture - Scribe Statement The provider has reviewed the documentation as recorded by the Scribe (Marielle Villanueva) Provider Attestation: All medical record entries made by the Scribe were at my direction and personally dictated by me. I have reviewed the chart and agree that the record accurately reflects my personal performance of the history, physical exam, medical decision making, and the department course for this patient. I have also personally directed, reviewed, and agree with the discharge instructions and disposition.
== END 2018-06-02 09:38 | disposition home or self-care (01) ==
LOC: SUPCPDRO 06:01 → C.ER 06:01
DX: S82.831D Other fracture of upper and lower end of right fibula, subsequent encounter for closed fracture with routine healing (principal); X50.1XXD Overexertion from prolonged static or awkward postures, subsequent encounter

== ENCOUNTER 2018-06-28 10:04 | Emergency (ER) | payer MEDICARE ==
[2018-06-28 10:18] VITALS: O2SAT 100
[2018-06-28 10:24] VITALS: BMI 44.2
[2018-06-28] MEDS ORDERED: Sodium Chloride 0.9% 1,000 ML IV ONE (10:45)
--- NOTE | 2018-06-28 10:49 | C.PDOC ---
History Of Present Illness 38 year old female with a history of diabetes and anxiety presents to the ED for evaluation of LLQ pain that began last night. (+) urinary frequency. Notes she is complaint with her medication though does not check her sugar regualrly. Denies taking any medications for the symptoms. Denies history of dysuria, vaginal discharge, vaginal bleeding, fever, chest pain, sob, vomiting, diarrhea, nausea, and any other associated symptoms. Time Seen by Provider: 06/28/18 10:25 Chief Complaint (Nursing): Abdominal Pain History Per: Patient History/Exam Limitations: no limitations Onset/Duration Of Symptoms: Hrs Current Symptoms Are (Timing): Still Present Past Medical History Reviewed: Historical Data, Nursing Documentation, Vital Signs Vital Signs: Last Vital Signs Temp 98.2 F 06/28/18 10:18 Pulse 82 06/28/18 10:18 Resp 20 06/28/18 10:18 BP 124/83 06/28/18 10:18 Pulse Ox 100 06/28/18 10:18 - Medical History PMH: Anxiety, Arthritis, Asthma, Depression, Fractures (right ankle) Denies: HTN (DENIED 04/20/18) Family History: States: Unknown Family Hx - Social History Hx Tobacco Use: No Hx Alcohol Use: No Hx Substance Use: No - Immunization History Hx Tetanus Toxoid Vaccination: Yes Hx Influenza Vaccination: Yes Hx Pneumococcal Vaccination: Yes Review Of Systems Except As Marked, All Systems Reviewed And Found Negative. Gastrointestinal: Negative for: Nausea, Vomiting, Diarrhea Genitourinary: Positive for: Frequency, Pelvic Pain Physical Exam - Physical Exam Appears: Well, Non-toxic, No Acute Distress Skin: Normal Color, Warm, Dry Head: Atraumatic, Normacephalic Eye(s): bilateral: Normal Inspection, EOMI Nose: Normal Oral Mucosa: Moist Neck: Normal ROM, Supple Chest: Symmetrical Cardiovascular: Rhythm Regular Respiratory: Normal Breath Sounds, No Rales, No Rhonchi, No Wheezing Gastrointestinal/Abdominal: Soft, Tenderness (LLQ tenderness) Extremity: Normal ROM (x4) Neurological/Psych: Oriented x3, Normal Speech ED Course And Treatment - Laboratory Results Result Diagrams: 06/28/18 11:20 06/28/18 11:20 O2 Sat by Pulse Oximetry: 100 (RA) Pulse Ox Interpretation: Normal Progress Note: Urine HCG. Urinalysis. Given Pepcid and Toradol. Patient declined CT Abd/Pelvis and any further evaluation. Patient asked to be discharge and an rx for Motrin. Pt ate two tuna sandwiches , no evidence of distress. Discussed return precautions and instructed to follow up with PMD in 1-2 days. Disposition - Disposition Disposition: HOME/ ROUTINE Disposition Time: 12:58 Condition: STABLE Additional Instructions: Follow up with PMD in 1-2 days. Return to ER if symptoms persist or worsen. 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 - Scribe Statement The provider has reviewed the documentation as recorded by the Scribe (Johanna Armas) All medical record entries made by the Scribe were at my direction and personally dictated by me. I have reviewed the chart and agree that the record accurately reflects my personal performance of the history, physical exam, medical decision making, and the department course for this patient. I have also personally directed, reviewed, and agree with the discharge instructions and disposition.
[2018-06-28] MEDS ORDERED: Sodium Chloride 0.9% 1,000 ML ONE (11:02)
[2018-06-28 11:27] LABS: BASO # 0.1 K/uL (0.0-0.2); EOS % 0.4 % (0.0-4.0); HEMOGLOBIN 13.4 g/dL (11.0-16.0); LYMPH # 1.4 K/uL (1.0-4.3); MEAN CELL VOLUME 97.3 fL (81.0-99.0); MEAN CORPUSCULAR HEMOGLOBIN 33.4 pg (27.0-31.0); MEAN CORPUSCULAR HGB CONC 34.4 g/dL (33.0-37.0); MEAN PLATELET VOLUME 7.4 fL (7.2-11.7); MONO # 0.5 K/uL (0.0-0.8); MONO % 6.6 % (0.0-10.0); NEUT # 5.6 K/uL (1.8-7.0); NRBC % 0.1 % (0.0-2.0); RED CELL DISTRIBUTION WIDTH 13.1 % (11.5-14.5); WHITE BLOOD COUNT 7.6 K/uL (4.8-10.8)
[2018-06-28 11:32] LABS: HCG,QUALITATIVE URINE NEGATIVE (NEGATIVE)
[2018-06-28 11:35] LABS: SQUAMOUS EPITHIAL 3 /hpf (0-5); URINE BACTERIA RARE (<OCC); URINE BILIRUBIN NEGATIVE (NEGATIVE); URINE BLOOD NEGATIVE (NEGATIVE); URINE CLARITY Hazy (Clear); URINE COLOR Yellow (YELLOW); URINE GLUCOSE (UA) NORMAL (Normal); URINE LEUKOCYTE ESTERASE NEG Leu/uL (Negative); URINE PROTEIN NEGATIVE (NEGATIVE)
[2018-06-28 11:51] LABS: ALB/GLOB RATIO 1.2 (1.0-2.1); ALBUMIN 3.9 g/dL (3.5-5.0); ALT/SGPT 22 U/L (9-52); AST/SGOT 23 U/L (14-36); BLOOD UREA NITROGEN 15 mg/dL (7-17); CALCIUM 8.7 mg/dl (8.6-10.4); GFR NON-AFRICAN AMERICAN > 60; LIPASE 70 U/L (23-300)
[2018-06-28] MEDS ORDERED: Iodixanol 320 MG/ML 100 ML BOTTLE IV ONE (12:57)
[2018-06-28 13:04] VITALS: BP 112/74; PULSE 76; RESP 18; TEMP 98.7
== END 2018-06-28 13:05 | disposition home or self-care (01) ==
LOC: C.ER 10:04
DX: R10.32 Left lower quadrant pain (principal)
CPT/HCPCS: 80053; 81001; 83690; 84703; 85025; 87086; 96361; 96374; 96375; 99285; J1885; J7030; Q9967

== ENCOUNTER 2018-07-15 15:31 | Emergency (ER) | payer MEDICARE ==
[2018-07-15 15:48] VITALS: BMI 44.2
[2018-07-15 15:54] VITALS: BP 156/82; PULSE 79; RESP 18; TEMP 98; O2SAT 100
--- NOTE | 2018-07-15 16:05 | C.PDOC ---
History Of Present Illness 38 y/o female, w/PMhx of right ankle fracture, presents to the ER complaining of pain to bilateral ankles and feet. Patient states that she was seen in the clinic and she was found to have fracture. Patient reports that she had a splint applied, however she was not compliant with using her crutches and following up with podiatry. Denies having weakness and numbness. Chief Complaint (Nursing): Lower Extremity Problem/Injury History Per: Patient History/Exam Limitations: no limitations Onset/Duration Of Symptoms: Days Current Symptoms Are (Timing): Still Present Severity: Moderate Past Medical History Reviewed: Historical Data, Nursing Documentation, Vital Signs Vital Signs: Last Vital Signs Temp 98.0 F 07/15/18 15:52 Pulse 79 07/15/18 15:52 Resp 18 07/15/18 15:52 BP 156/82 H 07/15/18 15:52 Pulse Ox 100 07/15/18 15:52 - Medical History PMH: Anxiety, Arthritis, Asthma, Depression, Fractures (right ankle) Denies: HTN (DENIED 04/20/18) Other Surgeries: Hx of surgeries Family History: States: No Known Family Hx - Social History Hx Tobacco Use: No Hx Alcohol Use: No Hx Substance Use: No - Immunization History Hx Tetanus Toxoid Vaccination: Yes Hx Influenza Vaccination: No Hx Pneumococcal Vaccination: No Review Of Systems Except As Marked, All Systems Reviewed And Found Negative. Musculoskeletal: Positive for: Foot Pain (bilateral foot pain), Other (bilateral ankle pain) Neurological: Negative for: Weakness, Numbness Physical Exam - Physical Exam Appears: Non-toxic, No Acute Distress Skin: Normal Color, Warm, Dry Head: Atraumatic, Normacephalic Eye(s): bilateral: Normal Inspection Nose: Normal Oral Mucosa: Moist Neck: Supple Chest: Symmetrical Extremity: Normal ROM, Tenderness (tenderness to lateral and posterior aspects of right ankle, tenderness to left ankle), Swelling (mild swelling to right and left ankles), Other (elastic bandage on right ankle) Neurological/Psych: Oriented x3, Normal Speech ED Course And Treatment O2 Sat by Pulse Oximetry: 100 (RA) Pulse Ox Interpretation: Normal - Other Rad A-Wvx-Hfublfirb Ankles X-Ray: Viewed By Me, Read By Radiologist Interpretation: Date of service: 07/15/2018. PROCEDURE: BILATERAL ANKLES. HISTORY: pain/swelling. COMPARISON: Right ankle radiographs 06/02/2018. TECHNIQUE: Three views of each ankle and submitted for interpretation. FINDINGS: No acute fracture dislocation identified. Further callus formation is appreciated at a distal fibular/lateral malleolar fracture right ankle with persistent lateral malleolar soft tissue edema appreciated. Ankle mortise appears stable though it remains widened medially, measuring up to 8.9 mm. Lateral mortise is narrowed measuring a maximum of 2.5 mm. Prominent left plantar calcaneal spur is noted with a minimal spur at the right. IMPRESSION: No acute fracture or dislocation bilateral ankles. Further callus formation is appreciated related to it distal right fibular/lateral malleolar fracture right ankle with persistent lateral malleolar soft tissue edema evident. Ankle mortise is widened medially and narrowed laterally. Clinically correlate. Consider orthopedic consultation for already made. N-Aya-Hmnzyddla Feet X-Ray: Viewed By Me, Read By Radiologist Interpretation: Date of service: 07/15/2018. PROCEDURE: Bilateral Feet Radiographs. HISTORY: pain/swelling. COMPARISON: Right foot radiographs 04/20/2018. FINDINGS: BONES: No acute fracture or destructive bony lesion identified in the interval. Incidental note is made of a late stage fracture distal right fibula. Please separate right ankle radiograph report for additional detail. JOINTS: Bilateral mild hallux valgus deformities are identified with degenerative changes of bilateral 1st metatarsophalangeal joints mildly. Similar changes are present throughout the remainder of the interphalangeal joints bilateral. No subluxation or dislocation throughout both feet. SOFT TISSUES: Right Foot: Normal. Left Foot: Normal. OTHER FINDINGS: None. IMPRESSION: No interval acute fracture or dislocation bilateral feet. Degenerative changes seen the forefeet as discussed above with bilateral hallux valgus deformities present. Late stage fracture at an intermediate stage of healing noted at the distal right fibula. Please separate right ankle radiograph series for additional characterization. Progress Note: Patient requested narotics for pain, however I explained the policy on narcotic treatment. Patient was treated with Tylenol PO and Motrin PO. X-Ray- Bilateral Ankles and X-Ray - Bilateral Feet ordered and reviewed. Podiatry consult was contacted. Podiatry resident evaluated patient. He states that patient will need surgery of right ankle and left ankle is painful secondary to compensatory position to gait. Patient has been discharged and instructed to follow up in podiatry clinic on 07/19/18. Disposition - Disposition Referrals: [facility] [Outside] Disposition: HOME/ ROUTINE Disposition Time: 18:24 Condition: STABLE Additional Instructions: Follow up in Podiatry clinic on Thursday, July 19, 2018 to schedule your surgery. Return to ED if feel worse. 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 - Scribe Statement The provider has reviewed the documentation as recorded by the Sandraibe Valente Gates Provider Attestation All medical record entries made by the Sandraibsameer were at my direction and personally dictated by me. I have reviewed the chart and agree that the record accurately reflects my personal performance of the history, physical exam, medical decision making, and the department course for this patient. I have also personally directed, reviewed, and agree with the discharge instructions and disposition.
--- NOTE | 2018-07-15 19:09 | RAD ---
Date of service: 07/15/2018 PROCEDURE: Bilateral Feet Radiographs. HISTORY: pain/swelling COMPARISON: Right foot radiographs 04/20/2018. FINDINGS: BONES: No acute fracture or destructive bony lesion identified in the interval. Incidental note is made of a late stage fracture distal right fibula. Please separate right ankle radiograph report for additional detail. JOINTS: Bilateral mild hallux valgus deformities are identified with degenerative changes of bilateral 1st metatarsophalangeal joints mildly. Similar changes are present throughout the remainder of the interphalangeal joints bilateral. No subluxation or dislocation throughout both feet. SOFT TISSUES: Right Foot: Normal. Left Foot: Normal. OTHER FINDINGS: None. IMPRESSION: No interval acute fracture or dislocation bilateral feet. Degenerative changes seen the forefeet as discussed above with bilateral hallux valgus deformities present. Late stage fracture at an intermediate stage of healing noted at the distal right fibula. Please separate right ankle radiograph series for additional characterization.
--- NOTE | 2018-07-15 19:12 | RAD ---
Date of service: 07/15/2018 PROCEDURE: BILATERAL ANKLES HISTORY: pain/swelling COMPARISON: Right ankle radiographs 06/02/2018. TECHNIQUE: Three views of each ankle and submitted for interpretation. FINDINGS: No acute fracture dislocation identified. Further callus formation is appreciated at a distal fibular/lateral malleolar fracture right ankle with persistent lateral malleolar soft tissue edema appreciated. Ankle mortise appears stable though it remains widened medially, measuring up to 8.9 mm. Lateral mortise is narrowed measuring a maximum of 2.5 mm. Prominent left plantar calcaneal spur is noted with a minimal spur at the right. IMPRESSION: No acute fracture or dislocation bilateral ankles. Further callus formation is appreciated related to it distal right fibular/lateral malleolar fracture right ankle with persistent lateral malleolar soft tissue edema evident. Ankle mortise is widened medially and narrowed laterally. Clinically correlate. Consider orthopedic consultation for already made.
--- NOTE | 2018-07-16 08:16 | CP.PCM.CON ---
History of Present Illness - History of Present Illness History of Present Illness: Podiatry consult note for Dr. Stoll: 38 yo female with pmhx of asthma, diabetes, depression, and drug abuse presents to the ED for pain in the left foot. States that she broke her right ankle about 6 weeks ago and that only a few days ago her left foot began to hurt. States she was seeing a a and p mechanic to manage her right ankle fracture but she was never offered surgery. States that she was in a cast for 6 weeks and then was told to see an orthopedic doctor. She changed her story many times during the interview. She denies N/V/F/C/SOB/CP and is asking for narcotic pain medication. PMHx asthma, drug abuse, diabetes, depression PSHx left arm surgery All NKDA Past Patient History - Infectious Disease Hx of Infectious Diseases: None - Past Social History Smoking Status: Heavy Smoker > 10 Cigarettes Daily - CARDIAC Hx Hypertension: No (DENIED 04/20/18) - PULMONARY Hx Asthma: Yes - ENDOCRINE/METABOLIC Hx Endocrine Disorders: Yes Hx Diabetes Mellitus Type 2: No (DENIES 04/20/18) - MUSCULOSKELETAL/RHEUMATOLOGICAL Hx Arthritis: Yes Hx Fractures: Yes (right ankle) - PSYCHIATRIC Hx Anxiety: Yes Hx Depression: Yes Hx Substance Use: No - SURGICAL HISTORY Hx Surgeries: Yes Hx Orthopedic Surgery: Yes (left arm fx 3 yrs. ago) - ANESTHESIA Hx Anesthesia: Yes Hx Anesthesia Reactions: No Hx Malignant Hyperthermia: No Meds Allergies/Adverse Reactions: Allergies Allergy/AdvReac Type Severity Reaction Status Date / Time No Known Allergies Allergy Verified 07/15/18 15:47 Physical Exam - Constitutional Appears: Well, Non-toxic, No Acute Distress - Head Exam Head Exam: ATRAUMATIC, NORMOCEPHALIC - Extremities Exam Additional comments: Vasc: DP and PT pulses palpable; cap refill <3 seconds to all digits; temp graident warm to warm; edema noted to right ankle and dorsum of lateral left forefoot Derm: no open lesions or wounds present; erytheam present to the right lateral ankle joint as well as dorsum of left forefoot; no clinical signs of infection present Ortho: pain on palpation to the left dorsolateral forefoot as well as right ankle lateral ankle joint, palpable stepoff felt at the right lateral ankle; ROM at the right ankle limited due to guarding Neuro: diminished protective sensation b/l - Neurological Exam Neurological exam: Alert, Oriented x3 - Psychiatric Exam Psychiatric exam: Normal Affect, Normal Mood Results - Vital Signs Recent Vital Signs: Last Vital Signs Temp 98.0 F 07/15/18 15:52 Pulse 79 07/15/18 15:52 Resp 18 07/15/18 18:31 BP 156/82 H 07/15/18 15:52 Pulse Ox 100 07/15/18 21:31 Assessment & Plan - Assessment and Plan (Free Text) Assessment: 38 yo female with right distal fibular fracture and left foot pain Plan: Patient seen and examined Discussed in detail with Dr. Stoll X-rays reviewed - right ankle shows evidence of old distal fibular fracture with displacement as well as incongruency at the ankle joint, left foot x-ray shows no bony pathology with mild soft tissue swelling evident where pain is located Patient was educated on ankle fracture and pain on left foot most likely coming from compensation due to shift of weightbearing load all onto the left foot to alleviate pain and stress to right chronic ankle fracture Patient demonstrated understanding but consistently asked for narcotic pain medication as tylenol does not work for her Instructed to come to the podiatry clinic for further follow up and plan for surgery Patient demonstrated understanding but stated to just get discharge paperwork and tylenol so she could leave Instructed to nonweightbear to right lower extremity with a surgical shoe or splint but patient refused Ambulates with slip on sneakers Follow up in clinic with Dr. Stoll on Thursday, given information upon discharge Thank you for the consult - Date & Time Date: 07/15/18 Time: 18:35
== END 2018-07-15 18:33 | disposition home or self-care (01) ==
LOC: C.ER 15:31
DX: M79.672 Pain in left foot (principal); M79.671 Pain in right foot; E11.9 Type 2 diabetes mellitus without complications; F17.210 Nicotine dependence, cigarettes, uncomplicated

== ENCOUNTER 2018-08-03 00:09 | Emergency (ER) | payer MEDICAID, MEDICARE ==
[2018-08-03 00:09] VITALS: BMI 44.2
[2018-08-03 00:22] VITALS: RESP 20
--- NOTE | 2018-08-03 01:55 | C.PDOC ---
History Of Present Illness 38 year old female presents to the ED c/o evaluation of pain and swelling to her right pinky finger. Patient now reports that the reason her hand and finger hurt is because their is a tampon stuck in her vagina over the past 3-4 days. Patient reports she does not the mechanism of injury. Patient denies abdominal pain, fever, chills, injury, fall, trauma, weakness, numbness. Time Seen by Provider: 08/03/18 01:05 Chief Complaint (Nursing): Finger,Hand,&Wrist History Per: Patient History/Exam Limitations: no limitations Onset/Duration Of Symptoms: Days Current Symptoms Are (Timing): Still Present Quality: "Pain" Recent travel outside of the [place]: No Additional History Per: Patient Past Medical History Reviewed: Historical Data, Nursing Documentation, Vital Signs Vital Signs: Last Vital Signs Temp 99.1 F 08/03/18 00:19 Pulse 88 08/03/18 00:19 Resp 20 08/03/18 00:19 BP 120/89 08/03/18 00:19 Pulse Ox 100 08/03/18 00:19 - Medical History PMH: Anxiety, Arthritis, Asthma, Depression, Fractures (right ankle) Denies: HTN (DENIED 04/20/18), Chronic Kidney Disease Surgical History: No Surg Hx Family History: States: Unknown Family Hx - Social History Hx Tobacco Use: No Hx Alcohol Use: No Hx Substance Use: No - Immunization History Hx Tetanus Toxoid Vaccination: Yes Hx Influenza Vaccination: No Hx Pneumococcal Vaccination: No Review Of Systems Constitutional: Negative for: Fever, Chills Cardiovascular: Negative for: Chest Pain Respiratory: Negative for: Shortness of Breath Gastrointestinal: Negative for: Nausea, Vomiting, Abdominal Pain Musculoskeletal: Positive for: Hand Pain Skin: Negative for: Rash Neurological: Negative for: Weakness, Numbness Physical Exam - Physical Exam Appears: Non-toxic, No Acute Distress Skin: Normal Color, Warm, Dry, No Rash Head: Atraumatic, Normacephalic Eye(s): bilateral: Normal Inspection Oral Mucosa: Moist Cardiovascular: Rhythm Regular, No Friction Rub, No Murmur Respiratory: Normal Breath Sounds, No Stridor, No Wheezing Gastrointestinal/Abdominal: Bowel Sounds (active), Soft, No Tenderness Pelvic: Normal External Exam, No Vaginal Bleeding, No Vaginal Discharge, No Cervical Motion Tenderness, No Adnexal Tenderness, Other ((+) cloth/cotton foreign body) Extremity: Normal ROM, Tenderness (right 5th finger), Capillary Refill (< 2 seconds), Swelling (2 cm area of ecchymosis dorsal aspect right 5th finger) Pulses: Left Radial: Normal, Right Radial: Normal Neurological/Psych: Oriented x3, Normal Speech, Normal Cognition, Normal Motor, Normal Sensation Gait: Steady ED Course And Treatment O2 Sat by Pulse Oximetry: 100 (ON RA) Pulse Ox Interpretation: Normal Medical Decision Making Medical Decision Making: Plan: * Tylenol 650 mg po * Right hand X-Ray The tampon was removed by Me, manually with success. Post-procedure there is no pain or bleeding. After procedure the patient reports that he hand does not hurt any longer and is refusing the xrays of the hand. Keflex PO given to prevent toxic shock. Disposition - Disposition Referrals: [facility] [Outside] Disposition: HOME/ ROUTINE Disposition Time: 02:00 Condition: GOOD Additional Instructions: Follow up with the OBGYN within 1-2 days. Return if worsened. Prescriptions: Cephalexin [Keflex] 500 mg PO BID #10 capsule Instructions: Foreign Body in Skin (DC) Forms: [employer] (Yakut) - Clinical Impression Clinical Impression: Vaginal foreign body - PA / DIRECTOR SAFETY / Resident Statement MD/DO has reviewed & agrees with the documentation as recorded. - Scribe Statement The provider has reviewed the documentation as recorded by the Scribe Nino Esquivel All medical record entries made by the Scribe were at my direction and personally dictated by me. I have reviewed the chart and agree that the record accurately reflects my personal performance of the history, physical exam, medical decision making, and the department course for this patient. I have also personally directed, reviewed, and agree with the discharge instructions and disposition.
[2018-08-03 02:15] VITALS: BP 102/68; PULSE 80; TEMP 97.9
[2018-08-03 06:21] VITALS: O2SAT 100
== END 2018-08-03 02:19 | disposition home or self-care (01) ==
LOC: C.ER 00:09
DX: T19.2XXA Foreign body in vulva and vagina, initial encounter (principal); X58.XXXA Exposure to other specified factors, initial encounter

== ENCOUNTER 2018-08-08 12:29 | Emergency (ER) | payer MEDICARE ==
[2018-08-08 12:36] VITALS: BMI 40.9
[2018-08-08] MEDS ORDERED: Sodium Chloride 0.9% 1,000 ML IV ONE (12:54)
[2018-08-08 13:20] LABS: BASO % 0.5 % (0.0-2.0); EOS % 0.3 % (0.0-4.0); HEMOGLOBIN 13.3 g/dL (11.0-16.0); LYMPH # 1.1 K/uL (1.0-4.3); LYMPH % 22.9 % (20.0-40.0); MEAN CELL VOLUME 96.2 fL (81.0-99.0); MEAN CORPUSCULAR HEMOGLOBIN 32.9 pg (27.0-31.0); MEAN CORPUSCULAR HGB CONC 34.2 g/dL (33.0-37.0); MEAN PLATELET VOLUME 7.3 fL (7.2-11.7); MONO # 0.5 K/uL (0.0-0.8); MONO % 10.8 % (0.0-10.0); NEUT # 3.3 K/uL (1.8-7.0); NEUT % 65.5 % (50.0-75.0); NRBC % 0.1 % (0.0-2.0); RBC 4.03 Mil/uL (3.80-5.20); RED CELL DISTRIBUTION WIDTH 12.9 % (11.5-14.5)
[2018-08-08 13:32] LABS: ALB/GLOB RATIO 1.3 (1.0-2.1); ALBUMIN 3.9 g/dL (3.5-5.0); ALT/SGPT 22 U/L (9-52); AST/SGOT 22 U/L (14-36); BLOOD UREA NITROGEN 12 mg/dL (7-17); CALCIUM 8.4 mg/dl (8.6-10.4); GFR NON-AFRICAN AMERICAN > 60
[2018-08-08 13:34] LABS: HCG,QUALITATIVE URINE NEGATIVE (NEGATIVE)
[2018-08-08 13:37] LABS: SQUAMOUS EPITHIAL 1 /hpf (0-5); URINE BACTERIA OCC (<OCC); URINE BILIRUBIN NEGATIVE (NEGATIVE); URINE BLOOD NEGATIVE (NEGATIVE); URINE CLARITY Clear (Clear); URINE COLOR Yellow (YELLOW); URINE GLUCOSE (UA) NORMAL (Normal); URINE LEUKOCYTE ESTERASE TRACE Leu/uL (Negative); URINE PROTEIN NEGATIVE (NEGATIVE); URINE UROBILINOGEN NORMAL mg/dL (0.2-1.0)
[2018-08-08 13:43] LABS: LIPASE 28 U/L (23-300)
[2018-08-08 14:04] LABS: BARBITURATES, UR NEGATIVE (NEGATIVE); BENZODIAZEPINES, UR NEGATIVE (NEGATIVE); OPIATES, UR NEGATIVE (NEGATIVE); PHENCYCLIDINE, UR NEGATIVE (NEGATIVE)
[2018-08-08] MEDS ORDERED: Iodixanol 320 MG/ML 100 ML BOTTLE IV ONE (14:22)
--- NOTE | 2018-08-08 15:14 | CT ---
CT abdomen and pelvis HISTORY: Abdominal pain. COMPARISON: CT dated 10/15/2016 TECHNIQUE: Multiple contiguous axial images were through the abdomen and pelvis with the use of intravenous contrast. Subsequently, sagittal coronal reformatted images were obtained. This CT exam was performed using one or more of the following dose reduction techniques: Automated exposure control, adjustment of the mA and/or kV according to patient size, and/or use of iterative reconstruction technique. Findings: Mild atelectasis at the lung bases. No pleural or pericardial effusion. Mild fatty infiltration of the liver. 2.3 centimeter cyst/cystic lesion in the right hepatic lobe demonstrating a Hounsfield unit attenuation of 16, indeterminate. Contracted gallbladder. Spleen is preserved. Adrenal glands are preserved. Pancreas is preserved. Upper abdominal bowel demonstrates a few distended and or mildly dilated loops of small bowel in the left gadiel abdomen with some mild bowel wall thickening which may represent an enteritis. Clinical correlation. Right kidney: No calculi or hydronephrosis. Left Kidney: No calculi or hydronephrosis. Urinary bladder is preserved. Heterogeneous uterus and bilateral adnexa. Evaluation of the lower abdominal bowel demonstrates moderate fecal retention in the colon. Appendix is not definitively visualized. Few shotty para-aortic and mesenteric lymph nodes. Few shotty pattern is shotty inguinal lymph nodes. Degenerative changes in the spine and hips. Impression: 1. Few distended and or mildly dilated loops of small bowel in the left gadiel abdomen with some mild bowel wall thickening which may represent an enteritis. Clinical correlation. 2. Appendix is not definitively visualized. 3. Moderate fecal retention in the colon. Additional findings as above.
--- NOTE | 2018-08-08 15:19 | C.PDOC ---
History Of Present Illness 38 year old female presents to the ED complaining of abdominal pain and cramping ongoing for 2 days. Associated symptoms include body aches, nonproductive cough and fever. Denies any chest pain, shortness of breath, vomiting, diarrhea, dysuria, hematuria, chills. Admits to history of constipation. Also complains of redness and swelling to the right pinky. Denies any trauma, weakness, or numbness. Time Seen by Provider: 08/08/18 12:42 Chief Complaint (Nursing): Abdominal Pain History Per: Patient History/Exam Limitations: no limitations Onset/Duration Of Symptoms: Days (2) Current Symptoms Are (Timing): Still Present Location Of Pain/Discomfort: Diffuse Radiation Of Pain To:: None Associated Symptoms: Fever. denies: Chills, Nausea, Vomiting, Diarrhea, Chest Pain, Urinary Symptoms Past Medical History Reviewed: Historical Data, Nursing Documentation, Vital Signs Vital Signs: Last Vital Signs Temp 98.3 F 08/08/18 12:36 Pulse 93 H 08/08/18 12:36 Resp 18 08/08/18 12:36 BP 115/76 08/08/18 12:36 Pulse Ox 98 08/08/18 12:36 - Medical History PMH: Anxiety, Arthritis, Asthma, Depression, Fractures (right ankle) Denies: HTN (DENIED 04/20/18), Chronic Kidney Disease Other Surgeries: Hx of surgeries Family History: States: No Known Family Hx - Social History Hx Tobacco Use: No Hx Alcohol Use: No Hx Substance Use: No - Immunization History Hx Tetanus Toxoid Vaccination: No Hx Influenza Vaccination: No Hx Pneumococcal Vaccination: No Review Of Systems Constitutional: Positive for: Fever, Other (bodyaches). Negative for: Chills Respiratory: Positive for: Cough. Negative for: Shortness of Breath Gastrointestinal: Positive for: Abdominal Pain, Constipation (chronic). Negative for: Nausea, Vomiting, Diarrhea Genitourinary: Negative for: Dysuria, Hematuria Skin: Positive for: Other (swelling and redness to right pinky ) Physical Exam - Physical Exam Appears: Non-toxic, No Acute Distress, Other (comfortable, bizzare effect, coughing occasionally ) Skin: Warm, Dry, No Rash Head: Normacephalic Eye(s): bilateral: Normal Inspection Nose: Normal Oral Mucosa: Moist Neck: Normal ROM, Supple Chest: Symmetrical Cardiovascular: Rhythm Regular Respiratory: Normal Breath Sounds, No Rales, No Rhonchi, No Wheezing Gastrointestinal/Abdominal: Soft, Tenderness (mild diffused tenderness), No Guarding, No Rebound Extremity: Normal ROM, Capillary Refill (less than 2 sec to right hand ), No Deformity, Other (mild erythema around nail bed of right 5th finger, no visible paronychia) Neurological/Psych: Oriented x3, Normal Speech Gait: Steady ED Course And Treatment - Laboratory Results Result Diagrams: 08/08/18 13:07 08/08/18 13:07 O2 Sat by Pulse Oximetry: 98 (RA) Pulse Ox Interpretation: Normal - CT Scan/US CT abd/pel Other Rad Studies (CT/US): Read By Radiologist, Radiology Report Reviewed CT/US Interpretation: Accession No. : [id number]. Patient Name / ID : WALKER SILVERMAN / [id number]. Exam Date : 08/08/2018 14:33:40 ( Approved ). Study Comment : Sex / Age : F / 38Y. Creator : Hiram Mccray MD. Dictator : Hiram Mccray MD. Field Human Resources Manager : Emergency Department Aide : Hiram Mccray MD. Approver2 : Report Date : 08/08/2018 15:11:26. My Comment : . CT abdomen and pelvis. HISTORY: Abdominal pain. COMPARISON: CT dated 10/15/2016. TECHNIQUE: Multiple contiguous axial images were through the abdomen and pelvis with the use of intravenous contrast. Subsequently, sagittal coronal reformatted images were obtained. This CT exam was performed using one or more of the following dose reduction techniques: Automated exposure control, adjustment of the mA and/or kV according to patient size, and/or use of iterative reconstruction technique. Findings: Mild atelectasis at the lung bases. No pleural or pericardial effusion. Mild fatty infiltration of the liver. 2.3 centimeter cyst/cystic lesion in the right hepatic lobe demonstrating a Hounsfield unit attenuation of 16, indeterminate. Contracted gallbladder. Spleen is preserved. Adrenal glands are preserved. Pancreas is preserved. Upper abdominal bowel demonstrates a few distended and or mildly dilated loops of small bowel in the left gadiel abdomen with some mild bowel wall thickening which may represent an enteritis. Clinical correlation. Right kidney: No calculi or hydronephrosis. Left Kidney: No calculi or hydronephrosis. Urinary bladder is preserved. Heterogeneous uterus and bilateral adnexa. Evaluation of the lower abdominal bowel demonstrates moderate fecal retention in the colon. Appendix is not definitively visualized. Few shotty para-aortic and mesenteric lymph nodes. Few shotty pattern is shotty inguinal lymph nodes. Degenerative changes in the spine and hips. Impression: 1. Few distended and or mildly dilated loops of small bowel in the left gadiel abdomen with some mild bowel wall thickening which may represent an enteritis. Clinical correlation. 2. Appendix is not definitively visualized. 3. Moderate fecal retention in the colon. Additional findings as above. Progress Note: Patient treated with Keflex, Toradol, IV fluids. Bactrim applied to right 5th finger. CT abd/pel ordered. Blood and urine collected and sent to the lab for analysis. Disposition Counseled Patient/Family Regarding: Studies Performed, Diagnosis, Need For Followup, Rx Given - Disposition Referrals: Satish Valera MD [Staff Provider] - Disposition: HOME/ ROUTINE Disposition Time: 15:20 Condition: STABLE Additional Instructions: FOLLOW UP WITH YOUR DOCTOR IN 1-2 DAYS USE MEDICATIONS DIRECTED RETURN TO ER IF SYMPTOMS WORSEN Prescriptions: Cephalexin [Keflex] 500 mg PO BID #14 capsule Famotidine [Pepcid] 20 mg PO BID PRN #15 tab PRN Reason: abdominal Ibuprofen [Motrin Tab] 600 mg PO Q6 PRN #30 tab PRN Reason: fever/pain Magnesium Citrate [Citrate of Mag] 300 ml PO ONCE PRN #1 bottle PRN Reason: Constipation Sulfamethoxazole/Trimethoprim [Bactrim DS 800 mg-160 mg] 1 tab PO BID #14 tab Instructions: Acute Abdomen (Belly Pain), Adult (DC), Cellulitis (Skin Infection), Adult (DC) Forms: [employer] (Prydeinig) Print Language: SYRIAC - Clinical Impression Clinical Impression: Abdominal pain, Cellulitis of finger of right hand - Scribe Statement The provider has reviewed the documentation as recorded by the Ermelinda Park All medical record entries made by the Ermelinda were at my direction and personally dictated by me. I have reviewed the chart and agree that the record accurately reflects my personal performance of the history, physical exam, medical decision making, and the department course for this patient. I have also personally directed, reviewed, and agree with the discharge instructions and disposition.
[2018-08-08] MEDS ORDERED: Tmp-Smz 800 mg-160 mg DS Tab PO STA (15:28)
[2018-08-08] MEDS ORDERED: Tmp-Smz 800 mg-160 mg DS Tab ONE (15:34)
[2018-08-08 15:40] VITALS: BP 138/86; PULSE 96; RESP 20; TEMP 98.1
[2018-08-08 15:46] VITALS: O2SAT 98
== END 2018-08-08 15:40 | disposition home or self-care (01) ==
LOC: C.ER 12:29
DX: L03.011 Cellulitis of right finger (principal); R10.9 Unspecified abdominal pain; F41.9 Anxiety disorder, unspecified; J45.909 Unspecified asthma, uncomplicated; F17.210 Nicotine dependence, cigarettes, uncomplicated
CPT/HCPCS: 74177; 80053; 81001; 83690; 84703; 85025; 96361; 96374; 99284; G0480; J1885; J7030; Q9967

== ENCOUNTER 2018-10-24 09:48 | Emergency (ER) | payer MEDICARE ==
[2018-10-24 09:48] VITALS: BMI 40.9
[2018-10-24 09:59] VITALS: TEMP 98.5
--- NOTE | 2018-10-24 11:05 | C.PDOC ---
History Of Present Illness 38 year old female patient presents to the emergency room complaining of cough for x3 days. Associated symptoms includes nasal congestion and chest pain. Patient denies fever, chills, vomiting, shortness of breath, numbness and weakness. Patient is well known in the emergency room. Time Seen by Provider: 10/24/18 10:04 Chief Complaint (Nursing): Shortness Of Breath History Per: Patient History/Exam Limitations: no limitations Onset/Duration Of Symptoms: Days (x3) Current Symptoms Are (Timing): Still Present Past Medical History Reviewed: Historical Data, Nursing Documentation, Vital Signs Vital Signs: Last Vital Signs Temp 98.5 F 10/24/18 09:57 Pulse 76 10/24/18 09:57 Resp 19 10/24/18 10:15 BP 108/62 10/24/18 09:57 Pulse Ox 100 10/24/18 10:15 - Medical History PMH: Anxiety, Arthritis, Asthma, Depression, Fractures (right ankle) Family History: States: Unknown Family Hx - Social History Hx Tobacco Use: No Hx Alcohol Use: No Hx Substance Use: No - Immunization History Hx Tetanus Toxoid Vaccination: No Hx Influenza Vaccination: No Hx Pneumococcal Vaccination: No Review Of Systems Except As Marked, All Systems Reviewed And Found Negative. Constitutional: Negative for: Fever, Chills ENT: Positive for: Nose Congestion Cardiovascular: Positive for: Chest Pain Respiratory: Positive for: Cough. Negative for: Shortness of Breath Neurological: Negative for: Weakness, Numbness Physical Exam - Physical Exam Appears: Non-toxic, No Acute Distress, Unkempt Skin: Warm, Dry, No Rash Head: Normacephalic Eye(s): bilateral: Normal Inspection Nose: Other (+nasal congestion) Oral Mucosa: Moist Throat: Normal, No Erythema Neck: Normal ROM, Supple Chest: Symmetrical, No Deformity Cardiovascular: Rhythm Regular, No Friction Rub, No Murmur Respiratory: Normal Breath Sounds, No Rales, No Rhonchi, No Wheezing Gastrointestinal/Abdominal: Soft, No Tenderness Back: Normal Inspection, No CVA Tenderness Neurological/Psych: Oriented x3, Normal Speech, Other (NAD) Gait: Steady ED Course And Treatment O2 Sat by Pulse Oximetry: 100 (RA) Pulse Ox Interpretation: Normal - Radiology CXR: Interpreted by Me, Viewed By Me CXR Interpretation: Yes: No Acute Disease Medical Decision Making Medical Decision Making: Plans: -- CXR chest pain is pleuritic in nature and secondary to cough and URI Disposition - Disposition Referrals: [facility] [Outside] Disposition: HOME/ ROUTINE Disposition Time: 11:34 Condition: STABLE Additional Instructions: Follow up with the medical doctor/clinic within 1-2 days. Return if worsened. Prescriptions: Fluticasone Propionate [Flonase] 1 spr NS DAILY #100 spr Ibuprofen [Motrin] 1 tab PO TID PRN #30 tab PRN Reason: Pain predniSONE [Prednisone] 10 mg PO BID #10 tab Instructions: Acute Bronchitis Forms: [employer] (German) - Clinical Impression Clinical Impression: Bronchitis - PA / RENT COLLECTOR / Resident Statement / has reviewed & agrees with the documentation as recorded. - Scribe Statement The provider has reviewed the documentation as recorded by the Ermelinda Louis Do All medical record entries made by the Scribe were at my direction and personally dictated by me. I have reviewed the chart and agree that the record accurately reflects my personal performance of the history, physical exam, medical decision making, and the department course for this patient. I have also personally directed, reviewed, and agree with the discharge instructions and disposition.
[2018-10-24 11:57] VITALS: BP 109/71; PULSE 75; RESP 20
--- NOTE | 2018-10-24 13:08 | RAD ---
Date of service: 10/24/2018 HISTORY: chest pain COMPARISON: Comparison is made with 01/21/2018 TECHNIQUE: Comparison is made with 01/21/2018 FINDINGS: LUNGS: No evidence of new infiltrate or consolidation in the lungs. PLEURA: No significant pleural effusion identified. No pneumothorax apparent. CARDIOVASCULAR: No aortic atherosclerotic calcification present. Normal cardiac size. No pulmonary vascular congestion. OSSEOUS STRUCTURES: No significant abnormalities. VISUALIZED UPPER ABDOMEN: Normal. OTHER FINDINGS: None. IMPRESSION: No active disease.
[2018-10-25 18:15] VITALS: O2SAT 100
== END 2018-10-24 11:58 | disposition home or self-care (01) ==
LOC: C.ER 09:48
DX: J40 Bronchitis, not specified as acute or chronic (principal)

== ENCOUNTER 2018-11-16 13:56 | Emergency (ER) | payer SELFPAY ==
[2018-11-16 13:56] VITALS: BMI 40.9
[2018-11-16 14:18] VITALS: BP 107/69; PULSE 89; RESP 18; TEMP 98.1; O2SAT 100
--- NOTE | 2018-11-16 15:12 | C.PDOC ---
History Of Present Illness 38 year old female presents to the ED with multiple complaints. Patient complains of a pimple to her right nare, left upper buttock, and scalp respectively. Patient also complains of generalized bone pain, secondary to her history of arthritis. Patient has not taken any [id number] medications for her symptoms. She denies fever, chills. Time Seen by Provider: 11/16/18 14:31 Chief Complaint (Nursing): ENT Problem History Per: Patient History/Exam Limitations: None Onset/Duration Of Symptoms: Days Current Symptoms Are (Timing): Still Present Past Medical History Reviewed: Historical Data, Nursing Documentation, Vital Signs Vital Signs: Last Vital Signs Temp 98.1 F 11/16/18 14:17 Pulse 89 11/16/18 14:17 Resp 18 11/16/18 14:17 BP 107/69 11/16/18 14:17 Pulse Ox 100 11/16/18 14:17 - Medical History PMH: Anxiety, Arthritis, Asthma, Depression, Fractures (right ankle) Denies: HTN (DENIED 04/20/18), Chronic Kidney Disease Surgical History: No Surg Hx Family History: States: Unknown Family Hx - Social History Hx Tobacco Use: No Hx Alcohol Use: No Hx Substance Use: No - Immunization History Hx Tetanus Toxoid Vaccination: No Hx Influenza Vaccination: No Hx Pneumococcal Vaccination: No Review Of Systems Constitutional: Negative for: Fever, Chills Musculoskeletal: Positive for: Other (generalized bone pain ) Skin: Positive for: Other (one pimple to right nare, left upper buttock and scalp ) Physical Exam - Physical Exam Appears: Non-toxic, No Acute Distress, Unkempt, Other (overweight female ) Skin: Normal Color, Warm, Dry, Other (1cm, firm, non-fluctuant area to left lower back/upper buttock region. no surrounding erythema or warmth ) Head: Atraumatic, Normacephalic, Other (one pimple to parietal scalp ) Eye(s): bilateral: Normal Inspection Nose: Other (nasal congestion bilaterally, one small pimple in right nare ) Oral Mucosa: Moist Neck: Supple Extremity: Normal ROM Neurological/Psych: Normal Speech, Normal Cognition ED Course And Treatment O2 Sat by Pulse Oximetry: 100 (on RA ) Pulse Ox Interpretation: Normal Disposition Counseled Patient/Family Regarding: Diagnosis, Need For Followup, Rx Given - Disposition Referrals: [facility] [Outside] Maico Naik MD [Staff Provider] - Disposition: HOME/ ROUTINE Disposition Time: 15:09 Condition: GOOD Additional Instructions: Take antibiotics as prescribed. Put warm compresses on pimple on head and buttocks several times a day. Follow up in medical clinic and with Dr Naik Prescriptions: Clindamycin [Cleocin] 300 mg PO Q6 #28 cap Ibuprofen [Motrin] 600 mg PO TID #30 tab Instructions: Boil (DC) Forms: [employer] (Turkmen) - Clinical Impression Clinical Impression: Boil of buttock, Boil of scalp, Nasal folliculitis - PA / SENIOR LOAN PROCESSOR / Resident Statement MD/DO has reviewed & agrees with the documentation as recorded. - Scribe Statement The provider has reviewed the documentation as recorded by the Scribe (Astrid Ann) All medical record entries made by the Scribe were at my direction and personally dictated by me. I have reviewed the chart and agree that the record accurately reflects my personal performance of the history, physical exam, medical decision making, and the department course for this patient. I have also personally directed, reviewed, and agree with the discharge instructions and disposition.
== END 2018-11-16 15:38 | disposition home or self-care (01) ==
LOC: C.ER 13:56
DX: L02.32 Furuncle of buttock (principal); L02.821 Furuncle of head [any part, except face]; L73.9 Follicular disorder, unspecified

== ENCOUNTER 2018-11-25 16:58 | Emergency (ER) | payer SELFPAY ==
[2018-11-25 16:59] VITALS: BMI 40.9
[2018-11-25 17:14] VITALS: BP 137/79; PULSE 74; RESP 20; TEMP 98.6; O2SAT 100
--- NOTE | 2018-11-25 18:20 | C.PDOC ---
History Of Present Illness 38 year old female presents to ED with complaint of nasal discharge. Patient denies fever, chills, sore throat, cough, nausea, vomiting, and diarrhea. Time Seen by Provider: 11/25/18 17:20 Chief Complaint (Nursing): Headache History Per: Patient History/Exam Limitations: no limitations Onset/Duration Of Symptoms: Unknown Current Symptoms Are (Timing): Still Present Past Medical History Reviewed: Historical Data, Nursing Documentation, Vital Signs Vital Signs: Last Vital Signs Temp 98.6 F 11/25/18 17:11 Pulse 74 11/25/18 17:11 Resp 20 11/25/18 17:11 BP 137/79 11/25/18 17:11 Pulse Ox 100 11/25/18 17:11 - Medical History PMH: Anxiety, Arthritis, Asthma, Depression, Fractures (right ankle) Denies: HTN (DENIED 04/20/18), Chronic Kidney Disease Surgical History: No Surg Hx Family History: States: Unknown Family Hx - Social History Hx Tobacco Use: No Hx Alcohol Use: No Hx Substance Use: No - Immunization History Hx Tetanus Toxoid Vaccination: No Hx Influenza Vaccination: No Hx Pneumococcal Vaccination: No Review Of Systems Constitutional: Negative for: Fever, Chills, Weakness ENT: Positive for: Nose Discharge. Negative for: Nose Congestion, Throat Pain Respiratory: Negative for: Cough Gastrointestinal: Negative for: Nausea, Vomiting, Diarrhea Neurological: Negative for: Weakness, Numbness, Dizziness Physical Exam - Physical Exam Appears: Non-toxic, No Acute Distress, Unkempt, Other (obese ) Skin: Normal Color, Warm, Dry Head: Atraumatic, Normacephalic Nose: Discharge (watery) Throat: Normal (oropharynx clear), No Erythema, No Exudate Neck: Normal ROM, Supple Chest: Symmetrical, No Deformity Respiratory: No Accessory Muscle Use Neurological/Psych: Oriented x3, Normal Speech ED Course And Treatment O2 Sat by Pulse Oximetry: 100 (in RA) Progress Note: Patient psychiatrically decompensated. Patient became argumentative and belligerent. Code radha called. Patient escorted out of the ED with discharge instructions. Medical Decision Making Medical Decision Making: viral syndrome clear nasal discharge Escorted from ED by Security Disposition Doctor Will See Patient In The: Office Counseled Patient/Family Regarding: Studies Performed, Diagnosis - Disposition Referrals: [facility] [place] [Outside] [facility] [Outside] [facility] [Outside] [facility] [Outside] Disposition: HOME/ ROUTINE Disposition Time: 18:19 Condition: GOOD Additional Instructions: motrin and Dayquil/Nyquil as needed Instructions: Allergic Rhinitis (ED) Forms: [employer] (Luxembourgish) - Clinical Impression Clinical Impression: Nasal discharge - Scribe Statement The provider has reviewed the documentation as recorded by the Scribe (Katherin Cui) All medical record entries made by the Scribe were at my direction and personally dictated by me. I have reviewed the chart and agree that the record accurately reflects my personal performance of the history, physical exam, medical decision making, and the department course for this patient. I have also personally directed, reviewed, and agree with the discharge instructions and disposition.
== END 2018-11-25 18:27 | disposition home or self-care (01) ==
LOC: C.ER 16:58
DX: J34.89 Other specified disorders of nose and nasal sinuses (principal)

== ENCOUNTER 2019-01-19 04:09 | Emergency (ER) | payer SELFPAY ==
[2019-01-19 04:09] VITALS: BMI 40.9
[2019-01-19 04:20] VITALS: RESP 16; O2SAT 98
--- NOTE | 2019-01-19 04:33 | C.PDOC ---
History Of Present Illness 38 year old female presents to the ED for evaluation s/p "being poisoned". Patient also c/o dry mouth. Patient denies any other medical complaints at this time. Chief Complaint (Nursing): Medical Clearance History Per: Patient History/Exam Limitations: no limitations Onset/Duration Of Symptoms: Hrs Current Symptoms Are (Timing): Still Present Recent travel outside of the [place]: No Additional History Per: Patient Past Medical History Reviewed: Historical Data, Nursing Documentation, Vital Signs Vital Signs: Last Vital Signs Temp 98 F 01/19/19 04:16 Pulse 81 01/19/19 04:16 Resp 16 01/19/19 04:16 BP 121/88 01/19/19 04:16 Pulse Ox 98 01/19/19 04:16 Primary Care Provider: FAMILY PROVIDER,NO - Medical History PMH: Anxiety, Arthritis, Asthma, Depression, Fractures (right ankle, left humerus) Denies: HTN (DENIED 04/20/18), Chronic Kidney Disease Surgical History: No Surg Hx Family History: States: Unknown Family Hx - Social History Hx Tobacco Use: No Hx Alcohol Use: No Hx Substance Use: No - Immunization History Hx Tetanus Toxoid Vaccination: No Hx Influenza Vaccination: No Hx Pneumococcal Vaccination: No Review Of Systems Constitutional: Negative for: Fever, Chills Cardiovascular: Negative for: Chest Pain Respiratory: Negative for: Shortness of Breath Gastrointestinal: Negative for: Nausea, Vomiting, Abdominal Pain Skin: Negative for: Rash Psych: Positive for: Psychosis. Negative for: Depression, Suicidal ideation Physical Exam - Physical Exam Appears: Non-toxic, No Acute Distress, Other (flight of ideas) Skin: Normal Color, Warm, Dry Head: Atraumatic, Normacephalic Eye(s): bilateral: Normal Inspection Oral Mucosa: Moist Neck: Normal ROM, Supple Chest: Symmetrical Cardiovascular: Rhythm Regular Respiratory: Normal Breath Sounds, No Rales, No Rhonchi, No Wheezing Gastrointestinal/Abdominal: Soft, No Tenderness, No Guarding, No Rebound Extremity: Normal ROM, No Tenderness, No Swelling Neurological/Psych: Oriented x3, Normal Speech, Normal Cognition Gait: Steady ED Course And Treatment - Laboratory Results Result Diagrams: 01/19/19 04:53 01/19/19 04:53 O2 Sat by Pulse Oximetry: 98 (On RA) Pulse Ox Interpretation: Normal Medical Decision Making Medical Decision Making: Plan: * LAbs * UA Disposition Counseled Patient/Family Regarding: Diagnosis - Disposition Referrals: [facility] [Outside] Disposition: HOME/ ROUTINE Disposition Time: 05:50 Condition: STABLE Forms: [facility] (I[place]ic) - POA Present On Arrival: None - Clinical Impression Clinical Impression: Medical assessment, Normal physical examination - Scribe Statement The provider has reviewed the documentation as recorded by the Scribe Nino Esquivel All medical record entries made by the Scribe were at my direction and personally dictated by me. I have reviewed the chart and agree that the record accurately reflects my personal performance of the history, physical exam, medical decision making, and the department course for this patient. I have also personally directed, reviewed, and agree with the discharge instructions and disposition.
[2019-01-19 04:56] LABS: SQUAMOUS EPITHIAL < 1 /hpf (0-5); URINE BILIRUBIN NEGATIVE (NEGATIVE); URINE BLOOD NEGATIVE (NEGATIVE); URINE CLARITY Clear (Clear); URINE COLOR Yellow (YELLOW); URINE GLUCOSE (UA) NORMAL (Normal); URINE LEUKOCYTE ESTERASE NEG Leu/uL (Negative); URINE PROTEIN NEGATIVE (NEGATIVE); URINE UROBILINOGEN NORMAL mg/dL (0.2-1.0)
[2019-01-19 05:02] LABS: BASO % 0.8 % (0.0-2.0); EOS # 0.1 K/uL (0.0-0.7); EOS % 0.9 % (0.0-4.0); LYMPH % 33.2 % (20.0-40.0); MEAN CELL VOLUME 98.3 fL (81.0-99.0); MEAN CORPUSCULAR HEMOGLOBIN 32.6 pg (27.0-31.0); MEAN CORPUSCULAR HGB CONC 33.1 g/dL (33.0-37.0); MEAN PLATELET VOLUME 7.7 fL (7.2-11.7); MONO # 0.4 K/uL (0.0-0.8); MONO % 7.5 % (0.0-10.0); NEUT # 3.4 K/uL (1.8-7.0); NEUT % 57.6 % (50.0-75.0); RBC 4.3 Mil/uL (3.80-5.20); RED CELL DISTRIBUTION WIDTH 12.8 % (11.5-14.5); WHITE BLOOD COUNT 5.9 K/uL (4.8-10.8)
[2019-01-19 05:07] LABS: BARBITURATES, UR NEGATIVE (NEGATIVE); BENZODIAZEPINES, UR NEGATIVE (NEGATIVE); OPIATES, UR NEGATIVE (NEGATIVE); PHENCYCLIDINE, UR NEGATIVE (NEGATIVE)
[2019-01-19 05:25] LABS: ALB/GLOB RATIO 1.2 (1.0-2.1); BLOOD UREA NITROGEN 13 mg/dL (7-17); CALCIUM 8.7 mg/dl (8.6-10.4); GFR NON-AFRICAN AMERICAN > 60
[2019-01-19 05:39] LABS: ALT/SGPT 19 U/L (9-52); AST/SGOT 29 U/L (14-36)
[2019-01-19 05:57] VITALS: BP 122/76; PULSE 66; TEMP 97.8
== END 2019-01-19 06:10 | disposition home or self-care (01) ==
LOC: C.ER 04:09
DX: Z00.00 Encounter for general adult medical examination without abnormal findings (principal)
CPT/HCPCS: 80053; 81001; 83735; 84100; 84703; 85025; 99283; G0480